=== PATIENT | female | born 1965 | race Caucasian/White ===

== ENCOUNTER 2017-03-28 04:22 | Emergency (ER) | payer BC, OTHER ==
[2017-03-28] MEDS ORDERED: SODIUM CHLORIDE 1,000 ML IV STA (04:53)
[2017-03-28 04:55] VITALS: BMI 25.7
[2017-03-28] MEDS ORDERED: METOCLOPRAMIDE HCL INJECTION 10 MG/2 ML VIAL IVPB ONE (05:03)
[2017-03-28] MEDS ORDERED: methylPREDNISolone NA SUCC 125 MG/2 ML VIAL IVPB ONE (05:03)
[2017-03-28] MEDS ORDERED: morphine CARPU-JECT 4 MG/1 ML DISP.SYRIN IVPUSH ONE (05:03)
[2017-03-28] MEDS ORDERED: morphine CARPU-JECT 4 MG/1 ML DISP.SYRIN ONE (05:22)
[2017-03-28] MEDS ORDERED: methylPREDNISolone NA SUCC 125 MG/2 ML VIAL ONE (05:22)
[2017-03-28] MEDS ORDERED: METOCLOPRAMIDE HCL INJECTION 10 MG/2 ML VIAL ONE (05:22)
[2017-03-28 05:23] LABS: BASOPHIL 0.7 % (0-2.0); EOSINOPHIL 0.6 % (0-4.5); MCH 28.4 pg (25.7-33.7); MCHC 33.5 g/dl (32.0-36.0); MEAN CELL VOLUME 84.8 fl (80-96); MEAN PLT VOLUME 10.1 fl (7.5-11.1); NEUTROPHILS 76.3 % (42.8-82.8); PLATELET COUNT 165 K/MM3 (134-434); RDW 15.5 % (11.6-15.6); WHITE BLOOD COUNT 5.9 K/mm3 (4.0-10.0)
--- NOTE | 2017-03-28 05:24 | PDOC ---
History of Present Illness - General Chief Complaint: Headache Stated Complaint: HEADACHE, NECK PAIN, VOMITING Time Seen by Provider: 03/28/17 04:40 History Source: Patient Exam Limitations: No Limitations - History of Present Illness Initial Comments: 03/28/17 05:12 52yo Female patient w/ PmHx: Hypothyroidism, HLD, Hysterectomy presents to ED w / c/o severe sudden onset h/a with left eye pressure. Patient states she was cleaning when symptoms began around 12am this morning. She state taking Tylenol x 2 tabs -> vomited then felt better, experience some abdominal discomfort, took Tylenol x 2 again and vomited. Associated photophobia and pain with EOM. Patient denies any other complaints at this time. Timing/Duration: reports: 4-6 hours, increasing Severity: Yes: severe Episode Description: See HPI Associated Symptoms: reports: nausea/vomiting. denies: denies symptoms, confusion, fatigue, fever/chills, insomnia, loss of consciousness, muscle spasms , numbness in legs/feet, paresthesia, ringing in ears, seizures, sleepy, slurred speech, tingling in legs/feet, trouble walking, vision changes, weakness , other Past History - Travel Traveled outside of the country in the last 30 days: No Close contact w/someone who was outside of country & ill: No - Past Medical History Allergies/Adverse Reactions: Allergies Allergy/AdvReac Type Severity Reaction Status Date / Time Penicillins Allergy Rash Verified 03/28/17 04:55 Home Medications: Ambulatory Orders Levothyroxine [Synthroid -] 75 mcg PO DAILY 12/10/13 Cancer: Yes Thyroid Disease: Yes (HYPO) - Family Disease History Family Disease History: CA: Sister - Immunization History Immunization Up to Date: Yes - Suicide/Smoking/Psychosocial Hx Smoking Status: No Smoking History: Never smoked Have you smoked in the past 12 months: No Number of Cigarettes Smoked Daily: 0 Information on smoking cessation initiated: No Hx Alcohol Use: No Drug/Substance Use Hx: No Substance Use Type: None Neuro Specific PMHX - Complaint Specific PMHX Glaucoma: No Herniated Disk: No Laminectomy: No Migraine: No Multiple Sclerosis: No Neuropathy: No TIA: No Review of Systems - Review of Systems Able to Perform ROS?: Yes Is the patient limited Bulgarian proficient: No Constitutional: No: Chills, Fever HEENTM: No: Eye Pain, Blurred Vision Respiratory: No: Cough, Stridor, Wheezing Cardiac (ROS): No: Chest Pain ABD/GI: Yes: Nausea, Vomiting. No: Constipated, Diarrhea, Poor Appetite, Poor Fluid Intake Musculoskeletal: No: Back Pain Neurological: Yes: Headache. No: Numbness, Paresthesia, Seizure, Tingling, Tremors, Weakness, Unsteady Gait, Ataxia, Dizziness All Other Systems: Reviewed and Negative *Physical Exam - Vital Signs Last Vital Signs Temp Pulse Resp BP Pulse Ox 98.1 F 76 21 140/95 99 03/28/17 04:51 03/28/17 04:51 03/28/17 04:51 03/28/17 04:51 03/28/17 04:51 - Physical Exam General Appearance: Yes: Nourished, Appropriately Dressed, Apparent Distress, Moderate Distress. No: Mild Distress, Severe Distress HEENT: positive: K[place], Normal ENT Inspection, Normal Voice, Symmetrical, TMs Normal, Pharynx Normal. negative: EOMI (Pain on examination.), Scleral Icterus (R), Scleral Icterus (L), Pharyngeal Erythema, Tonsillar Exudate, Tonsillar Erythema, TM Bulging, TM Dull, TM Erythema Neck: positive: Trachea midline, Supple. negative: Rigid, Stridor, Lymphadenopathy (R), Lymphadenopathy (L) Respiratory/Chest: positive: Lungs Clear, Normal Breath Sounds. negative: Chest Tender, Respiratory Distress, Accessory Muscle Use, Labored Respiration, Rapid RR, Rhonchi, Stridor, Wheezing Cardiovascular: positive: Regular Rhythm, Regular Rate Gastrointestinal/Abdominal: positive: Normal Bowel Sounds, Soft. negative: Tender, Distended, Rebound, Tenderness Musculoskeletal: positive: Normal Inspection. negative: CVA Tenderness Extremity: positive: Normal Capillary Refill, Normal Inspection, Normal Range of Motion. negative: Pedal Edema, Swelling, Calf Tenderness, Erythema, Inflammation Integumentary: positive: Normal Color, Dry, Warm Neurologic: positive: finding fastener II-XII NML intact, Fully Oriented, Alert, Normal Mood/ Affect, Normal Response, Motor Strength 5/5 ED Treatment Course - RADIOLOGY Radiology Studies Ordered: Category Date Time Status HEAD CT WITH AND W/O CONTRAST [CT] Stat CT Scan 03/28/17 04:51 Ordered NECK CTA [CT] Stat CT Scan 03/28/17 04:51 Ordered *DC/Admit/Observation/Transfer - Discharge Dispostion Condition at time of disposition: Fair
[2017-03-28 05:48] LABS: ALBUMIN 4.4 g/dl (3.4-5.0); ALK PHOS 69 U/L (45-117); ANION GAP 7 (8-16); BILIRUBIN,TOTAL 0.3 mg/dL (0.2-1.0); CALCIUM 8.8 mg/dL (8.5-10.1); CO2 28 mmol/L (21-32); CREATININE 0.6 mg/dL (0.55-1.02); GLUCOSE,RANDOM 112 mg/dL (74-106); SGOT/AST 17 U/L (15-37); SGPT/ALT 25 U/L (12-78); TOT PROT 7.5 g/dl (6.4-8.2)
--- NOTE | 2017-03-28 07:12 | PDOC ---
*Physical Exam - Vital Signs Last Vital Signs Temp Pulse Resp BP Pulse Ox 98.1 F 76 21 140/95 99 03/28/17 04:51 03/28/17 04:51 03/28/17 04:51 03/28/17 04:51 03/28/17 04:51 ED Treatment Course - LABORATORY CBC & Chemistry Diagram: 03/28/17 05:15 03/28/17 05:15 - ADDITIONAL ORDERS Additional order review: Laboratory Results 03/28/17 05:15 Sodium 144 Potassium 4.2 Chloride 109 H Carbon Dioxide 28 Anion Gap 7 L BUN 14 Creatinine 0.6 Creat Clearance w eGFR > 60 Random Glucose 112 H Calcium 8.8 Total Bilirubin 0.3 D AST 17 D ALT 25 D Alkaline Phosphatase 69 D Total Protein 7.5 Albumin 4.4 03/28/17 05:15 RBC 4.09 MCV 84.8 MCHC 33.5 RDW 15.5 MPV 10.1 Neutrophils % 76.3 D Lymphocytes % 18.1 D Monocytes % 4.3 Eosinophils % 0.6 D Basophils % 0.7 - Medications Given in the ED: ED Medications Discontinued Medications Generic Name Dose Route Start Last Admin Trade Name Freq PRN Reason Stop Dose Admin Sodium Chloride 1,000 mls @ 1,000 mls/hr 03/28/17 04:53 03/28/17 05:30 Normal Saline - IV 03/28/17 05:52 1,000 mls/hr ASDIR STA Administration Methylprednisolone Sodium Succinate 125 mg 03/28/17 05:03 03/28/17 05:26 Solu-Medrol - IVPB 03/28/17 05:04 125 mg ONCE ONE Administration Metoclopramide HCl 10 mg 03/28/17 05:03 03/28/17 05:27 Reglan Injection - IVPB 03/28/17 05:04 10 mg ONCE ONE Administration Morphine Sulfate 4 mg 03/28/17 05:03 03/28/17 05:34 Morphine Injection - IVPUSH 03/28/17 05:04 4 mg ONCE ONE Administration Medical Decision Making - Medical Decision Making 03/28/17 08:27 Received sign out from MOTORIZED SQU[employer] COMMANDING OFFICER Nicolas Luna. Waiting for CTA Neck, CT w/wo contrast of head. Pt. still complaining of headache 6/10 pain. Reports that she was nauseous and vomiting at CT even after reglan treatment. Will give IV zofran and IV tylenol now. Concerning for bleed. CT scan performed within 6 hours of onset of symptoms. 03/28/17 09:[address] Edward radiology. Reports an aneyrusm in the [place] of [place], but no evidence of subarachnoid at this time. Will consult with Dr. Akhtar neurosurgery. Also consider LP at this time. 03/28/17 09:[address] Akhtar Neurosurgery, who is recommending LP at this time. If the LP is positive for bleeding, pt. will be a candidate for transfer. Updated pt. with results and pt. agrees to LP at this time. 03/28/17 11:09 LP performed under sterile technique with Dr. Granados. See procedure note. Fluid collected was clear and colorless. Waiting for lab results. Pt. reports feeling better after zofran and Ofirmev. 03/28/17 12:45 Lumbar puncture with 1 RBC, no PMN's or organisms seen on gram stain. Protein and glucose within normal limits. Will follow up with neurosurgery for further discharge planning. Eye exam: PERRLA. No evidence of widening of the L pupil. No ptosis, lid lag 03/28/17 13:[address] Akhtar. Based on exam findings and lumbar puncter results, can discharge home with neurology follow up. Pt. reports that her symptoms have resolved and she is feeling much better. Will discharge home at this time. Pt. given strict return precautions should her headache return. *DC/Admit/Observation/Transfer Diagnosis at time of Disposition: Aneurysm Headache Qualifiers: Headache type: unspecified Headache chronicity pattern: acute headache Intractability: not intractable Qualified Code(s): R51 - Headache - Discharge Dispostion Disposition: HOME Condition at time of disposition: Good Admit: No - Prescriptions Prescriptions: Tramadol HCl 50 mg PO TID #5 tablet MDD 3 - Referrals Referrals: Amanda Mancia [Primary Care Provider] - Deuce Souza MD [Staff Physician] - Vinay Akhtar MD [Staff Physician] - - Patient Instructions Printed Discharge Instructions: DI for Migraine, Brain Aneurysm Additional Instructions: Your work up today showed that you have a small aneurysm in your brain. Your lumbar puncture did not show any blood. You need to follow up with neurology this week. You may take tylenol or ibuprofen as needed for pain. You were also prescribed tramadol. You may take this as needed for breakthrough pain. Rest for the next few days and avoid screens or close reading. Return to the ED if your pain returns, is not relieved with the medication, if you have nausea, vomiting, dizziness, weakness, or have any changes in your symptoms. Lumbar Puncture Indication: sudden onset headache Risks and Benefits Explained: Yes Sterile Technique: Yes Skin prep: Betadine Position: Right lateral decubitus Site: L4-L51 Local Anesthesia: 1% Lidocaine with epi (6cc without epi) CSF Color, Appearance: Clear, Colorless Sterile Dressing Applied: Yes
[2017-03-28] MEDS ORDERED: ONDANSETRON 4 MG/2 ML VIAL IVPUSH ONE (08:26)
[2017-03-28] MEDS ORDERED: ACETAMINOPHEN 1000 MG/100 ML VIAL (NON FORMULARY) IVPB ONE (08:27)
[2017-03-28] MEDS ORDERED: ACETAMINOPHEN INJECTION 100 ML IVPB ONE (08:36)
[2017-03-28] MEDS ORDERED: ONDANSETRON 4 MG/2 ML VIAL ONE (08:36)
[2017-03-28] MEDS ORDERED: LIDOCAINE HCL 1%, 10 MG/ML (50 mL VIAL) SQ ONE (09:36)
[2017-03-28] MEDS ORDERED: LIDOCAINE HCL 1%, 10 MG/ML (20ML VIAL) ONE (09:38)
--- NOTE | 2017-03-28 10:59 | PDOC ---
*Physical Exam - Vital Signs Last Vital Signs Temp Pulse Resp BP Pulse Ox 98.2 F 80 21 132/91 98 03/28/17 08:51 03/28/17 08:51 03/28/17 04:51 03/28/17 08:51 03/28/17 08:51 - Physical Exam General Appearance: Yes: Appropriately Dressed <Tootie Granados - Last Filed: 03/28/17 10:57> - Vital Signs Last Vital Signs Temp Pulse Resp BP Pulse Ox 98.1 F 92 H 18 119/77 98 03/28/17 12:24 03/28/17 12:24 03/28/17 12:24 03/28/17 12:24 03/28/17 12:24 <Trisha Watson - Last Filed: 03/28/17 12:51> ED Treatment Course - LABORATORY CBC & Chemistry Diagram: 03/28/17 05:15 03/28/17 05:15 - ADDITIONAL ORDERS Additional order review: Laboratory Results 03/28/17 05:15 Sodium 144 Potassium 4.2 Chloride 109 H Carbon Dioxide 28 Anion Gap 7 L BUN 14 Creatinine 0.6 Creat Clearance w eGFR > 60 Random Glucose 112 H Calcium 8.8 Total Bilirubin 0.3 D AST 17 D ALT 25 D Alkaline Phosphatase 69 D Total Protein 7.5 Albumin 4.4 03/28/17 05:15 RBC 4.09 MCV 84.8 MCHC 33.5 RDW 15.5 MPV 10.1 Neutrophils % 76.3 D Lymphocytes % 18.1 D Monocytes % 4.3 Eosinophils % 0.6 D Basophils % 0.7 - Medications Given in the ED: ED Medications Discontinued Medications Generic Name Dose Route Start Last Admin Trade Name Sushma PRN Reason Stop Dose Admin Acetaminophen 1,000 mg 03/28/17 08:27 03/28/17 08:44 Ofirmev Injection - IVPB 03/28/17 08:28 1,000 mg ONCE ONE Administration Sodium Chloride 1,000 mls @ 1,000 mls/hr 03/28/17 04:53 03/28/17 05:30 Normal Saline - IV 03/28/17 05:52 1,000 mls/hr ASDIR STA Administration Methylprednisolone Sodium Succinate 125 mg 03/28/17 05:03 03/28/17 05:26 Solu-Medrol - IVPB 03/28/17 05:04 125 mg ONCE ONE Administration Metoclopramide HCl 10 mg 03/28/17 05:03 03/28/17 05:27 Reglan Injection - IVPB 03/28/17 05:04 10 mg ONCE ONE Administration Morphine Sulfate 4 mg 03/28/17 05:03 03/28/17 05:34 Morphine Injection - IVPUSH 03/28/17 05:04 4 mg ONCE ONE Administration Ondansetron HCl 4 mg 03/28/17 08:26 03/28/17 08:44 Zofran Injection IVPUSH 03/28/17 08:27 4 mg ONCE ONE Administration <RobertaTootie - Last Filed: 03/28/17 10:57> - LABORATORY CBC & Chemistry Diagram: 03/28/17 05:15 03/28/17 05:15 - ADDITIONAL ORDERS Additional order review: Laboratory Results 03/28/17 03/28/17 03/28/17 10:47 10:40 05:15 Sodium 144 Potassium 4.2 Chloride 109 H Carbon Dioxide 28 Anion Gap 7 L BUN 14 Creatinine 0.6 Creat Clearance w eGFR > 60 Random Glucose 112 H Calcium 8.8 Total Bilirubin 0.3 D AST 17 D ALT 25 D Alkaline Phosphatase 69 D Total Protein 7.5 Albumin 4.4 CSF Appearance Clear Clear CSF Color Colorless Colorless CSF RBC 1 1 CSF Neutrophils Y Y CSF Glucose 62 CSF Total Protein 41 03/28/17 10:40 Gram Stain - Final Cerebral Spinal Fluid - Lumbar Puncture 03/28/17 05:15 RBC 4.09 MCV 84.8 MCHC 33.5 RDW 15.5 MPV 10.1 Neutrophils % 76.3 D Lymphocytes % 18.1 D Monocytes % 4.3 Eosinophils % 0.6 D Basophils % 0.7 - Medications Given in the ED: ED Medications Discontinued Medications Generic Name Dose Route Start Last Admin Trade Name Freq PRN Reason Stop Dose Admin Acetaminophen 1,000 mg 03/28/17 08:27 03/28/17 08:44 Ofirmev Injection - IVPB 03/28/17 08:28 1,000 mg ONCE ONE Administration Sodium Chloride 1,000 mls @ 1,000 mls/hr 03/28/17 04:53 03/28/17 05:30 Normal Saline - IV 03/28/17 05:52 1,000 mls/hr ASDIR STA Administration Lidocaine HCl 10 ml 03/28/17 09:36 03/28/17 10:15 Xylocaine 1% SQ 03/28/17 09:37 Not Given ONCE ONE Methylprednisolone Sodium Succinate 125 mg 03/28/17 05:03 03/28/17 05:26 Solu-Medrol - IVPB 03/28/17 05:04 125 mg ONCE ONE Administration Metoclopramide HCl 10 mg 03/28/17 05:03 03/28/17 05:27 Reglan Injection - IVPB 03/28/17 05:04 10 mg ONCE ONE Administration Morphine Sulfate 4 mg 03/28/17 05:03 03/28/17 05:34 Morphine Injection - IVPUSH 03/28/17 05:04 4 mg ONCE ONE Administration Ondansetron HCl 4 mg 03/28/17 08:26 03/28/17 08:44 Zofran Injection IVPUSH 03/28/17 08:27 4 mg ONCE ONE Administration <Trisha Watson - Last Filed: 03/28/17 12:51> Medical Decision Making - Medical Decision Making 03/28/17 10:57 52 yo F with h/o hypothyroid hld, here with sudden onset headache. pending ct. pt was seen by WALTER dobson overnight, then assumed care in conjunction with Gwendolyn Watson. pt ct with anuerysm noted. no active bleeding. d/w dr carmine willis, recommend LP. LP performed with Walter. no complications . spinal fluid clear, sent to lab. overall pt feeling improved. <Tootie Granados - Last Filed: 03/28/17 10:57> *DC/Admit/Observation/Transfer <Tootie Granados - Last Filed: 03/28/17 10:57> - Discharge Dispostion Admit: No <Trisha Watson - Last Filed: 03/28/17 12:51> Diagnosis at time of Disposition: Aneurysm Headache Qualifiers: Headache type: unspecified Headache chronicity pattern: acute headache Intractability: not intractable Qualified Code(s): R51 - Headache - Discharge Dispostion Disposition: HOME Condition at time of disposition: Good - Referrals Referrals: Amanda Mancia [Primary Care Provider] - Deuce Souza MD [Staff Physician] - - Patient Instructions Printed Discharge Instructions: DI for Migraine Additional Instructions: Your work up today showed that you have a small aneurysm in your brain. Your lumbar puncture did not show any blood. You need to follow up with neurology.
[2017-03-28 11:24] LABS: GLUCOSE,CSF 62 mg/dL (50-80)
[2017-03-28 12:01] LABS: CSF APPEARANCE CLEAR; CSF COLOR COLORLESS; CSF RBC 1
[2017-03-28 12:03] LABS: CSF APPEARANCE CLEAR; CSF COLOR COLORLESS; CSF RBC 1
[2017-03-28 13:38] VITALS: BP 133/91; PULSE 78; TEMP 98.6
== END 2017-03-28 13:38 | disposition home or self-care (01) ==
LOC: JER 04:22
PROC: 009U3ZX Drainage of Spinal Canal, Percutaneous Approach, Diagnostic (ICD-10-PCS; principal; 2017-03-28)
PROC: 3E0337Z Introduction of Electrolytic and Water Balance Substance into Peripheral Vein, Percutaneous Approach (ICD-10-PCS; 2017-03-28)
PROC: 3E033NZ Introduction of Analgesics, Hypnotics, Sedatives into Peripheral Vein, Percutaneous Approach (ICD-10-PCS; 2017-03-28)
PROC: 3E033NZ Introduction of Analgesics, Hypnotics, Sedatives into Peripheral Vein, Percutaneous Approach (ICD-10-PCS; 2017-03-28)
PROC: 3E0333Z Introduction of Anti-inflammatory into Peripheral Vein, Percutaneous Approach (ICD-10-PCS; 2017-03-28)
PROC: 3E033GC Introduction of Other Therapeutic Substance into Peripheral Vein, Percutaneous Approach (ICD-10-PCS; 2017-03-28)
DX: I67.1 Cerebral aneurysm, nonruptured (principal)
CPT/HCPCS: 36415; 62270; 70470-TC; 70498-TC; 80053; 82945; 84157; 85025; 85651; 86617; 87070; 87205; 87476; 89050; 96361; 96374; 96375; 99283-25

== ENCOUNTER 2017-08-07 14:59 | Emergency (ER) | payer OTHER, BC ==
[2017-08-07] MEDS ORDERED: LORazepam 2 MG/ML SDV VIAL ONE (15:05)
--- NOTE | 2017-08-07 15:10 | PDOC ---
History of Present Illness - General Stated Complaint: SEIZURE Time Seen by Provider: 08/07/17 15:09 Past History - Past Medical History Allergies/Adverse Reactions: Allergies Allergy/AdvReac Type Severity Reaction Status Date / Time Penicillins Allergy Rash Verified 03/28/17 04:55 Home Medications: Ambulatory Orders Levothyroxine [Synthroid -] 75 mcg PO DAILY 12/10/13 Tramadol HCl 50 mg PO TID #5 tablet MDD 3 03/28/17 Anemia: No Asthma: No Cancer: Yes Cardiac Disorders: No CVA: No COPD: No DVT: No Dementia: No Diabetes: No Dialysis: No GI Disorders: No Disorders: No HTN: No Hypercholesterolemia: Yes Kidney Stones: No Liver Disease: No Psychiatric Problems: No Seizures: No Thyroid Disease: Yes (HYPO) Lung CA: No - Family Disease History Family Disease History: CA: Sister - Immunization History Immunization Up to Date: Yes - Suicide/Smoking/Psychosocial Hx Smoking Status: No Smoking History: Never smoked Have you smoked in the past 12 months: No Number of Cigarettes Smoked Daily: 0 Hx Alcohol Use: No Drug/Substance Use Hx: No Substance Use Type: None
--- NOTE | 2017-08-07 15:19 | PDOC ---
History of Present Illness - General Stated Complaint: SEIZURE Time Seen by Provider: 08/07/17 15:09 History Source: Patient - History of Present Illness Initial Comments: 08/07/17 15:26 52 y.o. female with a PMH of Hypothyroidism, cerebral aneursym (s/p coiling at [facility] in 03/2017), traumatic SDH hematoma (s/p crainotomy 07/31/17) and HLD who presents to the ED with seizure like activity. Patient is s/p subdural hematoma last Thursday treated at [facility] in [place]. Patient notes patient has a h/o head trauma on and began slurring speech and c/o RUE and R face numbness last Thursday prompting their visit to a [facility] where patient was diagnosed with subdural hematoma and transferred to [place] for craniotomy. Patient returned to [place] on and has been complaining of persistent RUE and facial numbness and today began having seizure-like movement. Allergies: Penicillin Surgical: Crainiotomy (2018), Aneurysm Coiling (2016) Past History - Past Medical History Allergies/Adverse Reactions: Allergies Allergy/AdvReac Type Severity Reaction Status Date / Time Penicillins Allergy Rash Verified 03/28/17 04:55 Home Medications: Ambulatory Orders Levothyroxine [Synthroid -] 75 mcg PO DAILY 12/10/13 Tramadol HCl 50 mg PO TID #5 tablet MDD 3 03/28/17 Anemia: No Asthma: No Cancer: Yes Cardiac Disorders: No CVA: No COPD: No DVT: No Dementia: No Diabetes: No Dialysis: No GI Disorders: No Disorders: No HTN: No Hypercholesterolemia: Yes Kidney Stones: No Liver Disease: No Psychiatric Problems: No Seizures: No Thyroid Disease: Yes (HYPO) Lung CA: No - Family Disease History Family Disease History: CA: Sister - Immunization History Immunization Up to Date: Yes - Suicide/Smoking/Psychosocial Hx Smoking Status: No Smoking History: Never smoked Have you smoked in the past 12 months: No Number of Cigarettes Smoked Daily: 0 Hx Alcohol Use: No Drug/Substance Use Hx: No Substance Use Type: None Review of Systems - Review of Systems Able to Perform ROS?: No *Physical Exam - Physical Exam Comments: 08/07/17 22:05 GENERAL: Awake, writhing movements of all 4 extremities HEAD: L sided franca EYES: PERRLA, EOMI, sclera anicteric, conjunctiva clear ENT: Auricles normal inspection, nares patent, oropharynx clear without exudates. Moist mucosa NECK: Normal ROM, supple, no lymphadenopathy, JVD, or masses LUNGS: Breath sounds equal, clear to auscultation bilaterally. No wheezes, and no crackles HEART: Regular rate and rhythm, normal S1 and S2, no murmurs, rubs or gallops ABDOMEN: Soft, nontender, normoactive bowel sounds. No guarding, no rebound. No masses EXTREMITIES: Normal range of motion, no edema. BACK: No midline spinal tenderness in cervical/thoracic/lumbar region NEUROLOGICAL: Normal speech, follows commands SKIN: Warm, Dry, normal turgor, no rashes or lesions noted. ED Treatment Course - LABORATORY CBC & Chemistry Diagram: 08/07/17 16:34 08/07/17 16:34 Medical Decision Making - Medical Decision Making 08/07/17 15:59 Patient is a 52 y.o. female with a PMH of recent subdural hematoma who presents with seizure like activity. Cardiac monitoring, Ativan 2 mg + Head CT. Reassess Head CT shows 2.2 cm L subdural/subacute hemorrhage with 8 mm midline shift. Case d/w neurosurgery and ED @ [facility], patient to be transferred to [facility] for neurosurgical evaluation. At time of transfer patient SBP 150's , patient given prophylatic dose of Keppra (1000 mg). *DC/Admit/Observation/Transfer Diagnosis at time of Disposition: Generalized-onset seizures - Discharge Dispostion Disposition: TRANSFER ACUTE CARE/OTHER HOSP Condition at time of disposition: Critical - Referrals - Patient Instructions - Post Discharge Activity
[2017-08-07] MEDS ORDERED: levETIRAcetam 500 MG/5 ML INJECTION VIAL IVPB ONE ×2 (16:01→16:41)
[2017-08-07 16:06] LABS: BASO % 1.4 % (0-2.0); EOS % 3.6 % (0-4.5); HEMATOCRIT 28.7 % (32.4-45.2); HEMOGLOBIN 9.3 GM/dL (10.7-15.3); LYMPH % 36.2 % (8-40); MCH 26.1 pg (25.7-33.7); MCHC 32.3 g/dl (32.0-36.0); MEAN CELL VOLUME 80.7 fl (80-96); MONO % 8.7 % (3.8-10.2); NEUT % 50.1 % (42.8-82.8); PLATELET COUNT 254 K/MM3 (134-434); RBC 3.56 M/mm3 (3.60-5.2); RDW 15.3 % (11.6-15.6); WHITE BLOOD COUNT 3.6 K/mm3 (4.0-10.0)
[2017-08-07 16:56] LABS: BASO % 0.8 % (0-2.0); EOS % 3.5 % (0-4.5); HEMATOCRIT 25.1 % (32.4-45.2); HEMOGLOBIN 8.1 GM/dL (10.7-15.3); LYMPH % 36.6 % (8-40); MCHC 32.4 g/dl (32.0-36.0); MEAN CELL VOLUME 80.5 fl (80-96); MEAN PLT VOLUME 8.6 fl (7.5-11.1); NEUT % 49.1 % (42.8-82.8); PLATELET COUNT 258 K/MM3 (134-434); RBC 3.13 M/mm3 (3.60-5.2); RDW 15.1 % (11.6-15.6); WHITE BLOOD COUNT 4.1 K/mm3 (4.0-10.0)
[2017-08-07 17:02] VITALS: TEMP 99.2; BMI 24.1
--- NOTE | 2017-08-07 17:14 | PDOC ---
Attending Attestation - Resident Resident Name: Parul Angelo - ED Attending Attestation I have performed the following: I have examined & evaluated the patient, The case was reviewed & discussed with the resident, I agree w/resident's findings & plan, Exceptions are as noted <Keara Talley - Last Filed: 08/07/17 17:13> - HPI HPI: 08/07/17 18:42 The patient is a 52 year old female with a significant PMH of hypothyroidism, cerebral aneurysm s/p coiling at [facility] March 2017, traumatic SDH s/p craniotomy 07/31/17 and hyperlipidemia who presents to the emergency department with seizure like activity. The patients is at bedside and providing most of the history. The patient is s/p craniotomy for traumatic SDH on 07/31/17 at [facility] ([place]) diagnosed after the patient began to have R facial/arm numbness. The patient and returned to [place] on 08/04/17 and the patient has had persistent numbness of the right arm and right face. One hour PROFESSIONAL PROGRAMMER ANALYST, pt began to have writhing movements of her body which prompted him to bring her to the ED. No LOC, no falls or headstrike. The patient is currently taking keppra, oxycodone, zofran, and gabapentin and the states the patient took keppra today. Allergies: NKA Past surgical history: Craniotomy, aneurysm coiling Social history: No reported alcohol, cigarette or drug use. - Physicial Exam PE: 08/07/17 18:42 GENERAL: Awake, alert, repetitive movements of L side of body HEAD: No signs of trauma EYES: PERRLA, EOMI, sclera anicteric, conjunctiva clear NECK: Normal ROM, supple, no lymphadenopathy, JVD, or masses LUNGS: Breath sounds equal, clear to auscultation bilaterally. No wheezes, and no crackles HEART: tachy to 104 but regular, normal S1 and S2, no murmurs, rubs or gallops ABDOMEN: Soft, nontender, normoactive bowel sounds. No guarding, no rebound. No masses EXTREMITIES: Normal range of motion, no edema. No clubbing or cyanosis. No cords, erythema, or tenderness BACK: No midline spinal tenderness in cervical/thoracic/lumbar region NEUROLOGICAL:Slurred speech, rigidity to LUE and LLE, normal sensation to light touch in all 4 extremities, gait and cerebeller exam deferred SKIN: Warm, Dry, normal turgor, no rashes or lesions noted. <Edwige Francois - Last Filed: 08/07/17 18:42>
[2017-08-07 17:17] LABS: INR 1.05 (0.82-1.09); PROTHROMBIN TIME (PATIENT) 11.9 SEC (9.98-11.88)
[2017-08-07 17:19] LABS: ACTIVATED PTT 29.3 SECONDS (26.9-34.4)
[2017-08-07 17:22] VITALS: BP 122/87; PULSE 80
[2017-08-07 17:46] LABS: ALBUMIN 3.8 g/dl (3.4-5.0); ANION GAP 7 (8-16); BLOOD UREA NITROGEN 14 mg/dL (7-18); CALCIUM 8.6 mg/dL (8.5-10.1); CHLORIDE 104 mmol/L (98-107); CHOLESTEROL 189 mg/dL (50-200); CO2 28 mmol/L (21-32); GLUCOSE,RANDOM 89 mg/dL (74-106); POTASSIUM 4.2 mmol/L (3.5-5.1); SGOT/AST 22 U/L (15-37); SODIUM 139 mmol/L (136-145)
[2017-08-07 18:04] LABS: ALK PHOS 97 U/L (45-117); BILIRUBIN,TOTAL 0.3 mg/dL (0.2-1.0); CREATININE 0.6 mg/dL (0.55-1.02); HDL CHOLESTEROL 56 mg/dL (40-60); LDL CHOLESTEROL (ONLY SJRH) 112 mg/dL (5-100); SGPT/ALT 33 U/L (12-78); TOT PROT 6.8 g/dl (6.4-8.2); TRIGLYCERIDES 157 mg/dL (35-160)
--- NOTE | 2017-08-08 13:20 | EKG ---
Test Reason : Blood Pressure : / mmHG Vent. Rate : 078 BPM Atrial Rate : 078 BPM P-R Int : 144 ms QRS Dur : 082 ms QT Int : 386 ms P-R-T Axes : 086 006 019 degrees QTc Int : 440 ms NORMAL SINUS RHYTHM POOR R WAVE PROGRESSION ABNORMAL ECG WHEN COMPARED WITH ECG OF 07-APR-2015 18:35, NO SIGNIFICANT CHANGE WAS FOUND NOTE POSSIBLE ERROR IN LEAD POSITIONING, V4 Confirmed by DELTA GUZMAN, SHASHA ([id number]) on 08/08/2017 1:19:45 PM Referred By: Confirmed By:SHASHA SORENSON MD
== END 2017-08-07 17:20 | disposition short-term general hospital (02) ==
LOC: JER 14:59
DX: R56.9 Unspecified convulsions (principal); Z87.820 Personal history of traumatic brain injury
CPT/HCPCS: 36415; 70450-TC; 80053; 82465; 82550; 83718; 83721; 84478; 84484; 85025; 85610; 85730; 86850; 86900; 86901; 93005; 93010; 99283-25

== ENCOUNTER 2017-08-15 13:41 | Observation (INO) | payer OTHER, BC ==
--- NOTE | 2017-08-15 13:58 | PDOC ---
History of Present Illness - General History Source: Patient, Family Exam Limitations: No Limitations - History of Present Illness Initial Comments: 08/15/17 14:37 The patient is a 52 year old female with a significant past medical history of hyperthyroidism s/p RT (now on synthroid), s/p bilateral mastectomy, elective clipping of left sided cerebral aneurysm (05/20/17 at [facility]), traumatic SDH hematoma (s/p craniotomy 07/31/17), Left SDH with mass effect (08/07/17) who presents to the ED, brought in by family, with numbness. The patient reports a sudden onset of right sided numbness 15 minutes prior to her arrival to the ED. The patient was seen in the ED last week and was diagnosed with a Left SDH with mass effect. Patient was transferred to [facility] and had a craniotomy with evacuation of the hematoma. Family states the patients present symptoms are similar to her symptoms last week. She reports numbness to her right sided extremities, right sided face, and tongue. Patient also reports a severe headache all day. Denies fever or chills. Denies any other symptoms. <Nandini Santana - Last Filed: 08/15/17 17:07> <Elizabeth Hatfield - Last Filed: 08/16/17 01:32> - General Chief Complaint: CVA/TIA Stated Complaint: SEIZURE Time Seen by Provider: 08/15/17 13:47 Past History <Nandini Santana - Last Filed: 08/15/17 17:07> - Past Medical History Anemia: No Asthma: No Cancer: Yes Cardiac Disorders: No CVA: No COPD: No DVT: No Dementia: No Diabetes: No Dialysis: No GI Disorders: No Disorders: No HTN: No Hypercholesterolemia: Yes Kidney Stones: No Liver Disease: No Psychiatric Problems: No Seizures: No Thyroid Disease: Yes (HYPO) Lung CA: No - Surgical History Neurologic Surgery: Yes (brain clip 05/2017 crainotomy 08/05/2017) - Family Disease History Family Disease History: CA: Sister - Immunization History Immunization Up to Date: Yes - Suicide/Smoking/Psychosocial Hx Smoking Status: No Smoking History: Never smoked Have you smoked in the past 12 months: No Number of Cigarettes Smoked Daily: 0 Hx Alcohol Use: No Drug/Substance Use Hx: No Substance Use Type: None <Elizabeth Hatfield - Last Filed: 08/16/17 01:32> - Past Medical History Allergies/Adverse Reactions: Allergies Allergy/AdvReac Type Severity Reaction Status Date / Time Penicillins Allergy Rash Verified 08/15/17 13:59 Home Medications: Ambulatory Orders Levothyroxine [Synthroid -] 75 mcg PO DAILY 12/10/13 Ascorbic Acid [Vitamin C] 500 mg PO DAILY 08/15/17 Ferrous Sulfate 325 mg PO DAILY 08/15/17 Gabapentin [Neurontin -] 300 mg PO Q8H 08/15/17 Levetiracetam 1,000 mg PO BID 08/15/17 Simvastatin 20 mg PO DAILY 08/15/17 Review of Systems - Review of Systems Able to Perform ROS?: Yes Comments:: 08/15/17 14:37 Constitutional - Pt denies Fever, Chills, weakness, HEENT: denies vision changes, sore throat Respiratory: Denies cough, sob, hemoptysis Cardiac: denies chest pain, palpitations, light headedness, leg swelling Abd/GI: denies abd pain, nausea, vomiting, blood per rectum, melena, diarrhea : denies dysuria, frequency, discharge Musculskelatal - denies back pain, joint swelling skin - denies bruising, erythema, rash neurological: + headache, numbness. hematologic: denies anemia, easy bruising, easy bleeding All Other Systems: Reviewed and Negative <Nandini Santana - Last Filed: 08/15/17 17:07> *Physical Exam - Vital Signs Last Vital Signs Temp Pulse Resp BP Pulse Ox 97 F L 84 12 122/97 100 08/15/17 13:50 08/15/17 13:50 08/15/17 13:50 08/15/17 13:50 08/15/17 13:50 - Physical Exam Comments: 08/15/17 14:37 GENERAL: The patient is awake, alert, and fully oriented, Nontoxic - in no acute distress. HEAD: + Nicholson in head from recent Craniotomy. Normocephalic. EYES: extraocular movements intact, sclera anicteric, conjunctiva clear. ENT: Normal voice, moist mucous membranes. NECK: Normal range of motion, supple without lymphadenopathy, JVD, or masses. LUNGS: Breath sounds equal, clear to auscultation bilaterally. No wheezes, no crackles, no rales. HEART: Regular rate and rhythm, normal S1 and S2 without murmur, rub or gallop. ABDOMEN: Soft, nontender, normoactive bowel sounds. No guarding, no rebound. No masses. EXTREMITIES: Normal range of motion, no edema. No clubbing or cyanosis. No cords , erythema, or tenderness. NEUROLOGICAL: + Fully Oriented x 3, Alert, Motor Strength 5/5 in upper extremities. Lower extremities: able to move right leg against gravity, but unable to lift off bed. Left leg unable to lift at all. Numbness of right side, weakness of right lower leg. No pronator drift, normal finger to nose. Slight right facial asymmetry. Normal speech SKIN: Warm, Dry, normal turgor, no rashes or lesions noted. <Nandini Santana - Last Filed: 08/15/17 17:07> Heart Score/ECG Review - Electrocardiogram EKG: Normal - Age Age: 45-65 - Risk Factors Risk Factors Heart Score: Yes Hx Hypercholesterolemia, Yes Hx Hypertension Based on the list above the patient has:: 1-2 risk factors - Troponin Troponin: </= normal limit - ECG Intrepretation Rhythm: Regular Rhythm (nsr at 90 nl axis) <Elizabeth Hatfield - Last Filed: 08/16/17 01:32> ED Treatment Course - LABORATORY CBC & Chemistry Diagram: 08/15/17 13:55 08/15/17 13:56 - ADDITIONAL ORDERS Additional order review: Laboratory Results 08/15/17 08/15/17 14:00 13:55 PT with INR 11.90 H INR 1.05 Sodium Cancelled Potassium Cancelled Chloride Cancelled Carbon Dioxide Cancelled Anion Gap Cancelled BUN Cancelled Creatinine Cancelled Creat Clearance w eGFR Cancelled Random Glucose Cancelled Calcium Cancelled Total Bilirubin Cancelled AST Cancelled ALT Cancelled Alkaline Phosphatase Cancelled Total Protein Cancelled Albumin Cancelled 08/15/17 13:55 RBC 3.10 L MCV 80.3 MCHC 32.2 RDW 15.5 MPV 7.8 Neutrophils % 42.1 L Lymphocytes % 46.7 H D Monocytes % 8.3 Eosinophils % 2.3 Basophils % 0.6 - RADIOLOGY Radiograph Interpretation: 08/15/17 17:03 CT/HEAD CT Impression: Status post left frontoparietal craniotomy with interval decreased size of the left subdural hematoma. Residual mixed density left subdural hematoma along the left frontoparietal convexities measures up to 9 mm in thickness with mild mass effects. No midline shift, herniation pattern or hydrocephalus. No compelling evidence of acute transcortical infarction at this time. MRI is more sensitive in detecting acute infarction. These findings were discussed with Dr. Hatfield at approximately 14:15 on 08/15/2017 Reported by: Jayda Edward 08/15/17 17:07 RAD/CHEST X-RAY PORTABLE Impression: Bilateral breast implants. Previous right shoulder surgery. Degenerative changes. No acute pathology. Reported by: Bucky Gilbert - Medications Given in the ED: ED Medications Discontinued Medications Generic Name Dose Route Start Last Admin Trade Name Freq PRN Reason Stop Dose Admin Levetiracetam 1,000 mg 08/15/17 14:11 08/15/17 14:24 Keppra Injection - IVPB 08/15/17 14:12 1,000 mg ONCE ONE Administration Levetiracetam 1,500 mg 08/15/17 14:11 08/15/17 14:28 Keppra Injection - IVPB 08/15/17 14:12 Not Given ONCE ONE Ondansetron HCl 4 mg 08/15/17 14:18 08/15/17 14:28 Zofran Injection IVPUSH 08/15/17 14:19 4 mg ONCE ONE Administration <Nandini Santana - Last Filed: 08/15/17 17:07> - LABORATORY CBC & Chemistry Diagram: 08/15/17 19:10 08/15/17 13:56 - RADIOLOGY Radiology Studies Ordered: Category Date Time Status HEAD CT WITHOUT CONTRAST [CT] Stat CT Scan 08/15/17 13:47 Ordered CHEST X-RAY PORTABLE* [RAD] Stat Radiology 08/15/17 13:48 Ordered <Elizabeth Hatfield - Last Filed: 08/16/17 01:32> Medical Decision Making - Critical Care Time Total Critical Care Time (minutes): 30 Critical Care Statement: The care of this patient involved high complexity decision making to prevent further life threatening deterioration of the patient 's condition and/or to evaluate & treat vital organ system(s) failure or risk of failure. - Medical Decision Making 08/15/17 15:[address] Whitman and Dr. Neal. <Nandini Santana - Last Filed: 08/15/17 17:07> - Critical Care Time Total Critical Care Time (minutes): 30 Critical Care Statement: The care of this patient involved high complexity decision making to prevent further life threatening deterioration of the patient 's condition and/or to evaluate & treat vital organ system(s) failure or risk of failure. - Medical Decision Making 08/15/17 13:58 I, Dr. Elizabeth Hatfield I attest that the scribes documentation that appears above has been prepared under my direction and personally reviewed by me. Pt brought in by family with complaints of sudden onset of rt sided weakness, headache,similar to the symptoms she experienced a week ago. Emergent ct of head , cbc, cmp, inr ,ekg blood glucose orderd. Ct of head shows post operative changes but no new intracranial bleed or cva. Pts labs noted , pt neuro exam improvng during time in ed. Rt side weakness and numbness resolving in ed. Case discussed with neuro sx and neurology and pt examined by both consultants while in ED. Todays incident may have been secondary to some type of seizure related event secondary to pt's recent surgery. Pt physical exam not completely at baseline,so will admit for observation to stroke unit. Pt agrees with this dc plan. Pt's initial NIHSS 7 and improving,but Pt would not a candiate for any type of TPA, due to recent SDH and craniotomy. 08/16/17 01:21 08/16/17 01:30 <Elizabeth Hatfield - Last Filed: 08/16/17 01:32> *DC/Admit/Observation/Transfer - Attestations Scribe Attestion: 08/15/17 14:38 Documentation prepared by Nandini Santana, acting as manager medical writing for Elizabeth Hatfield MD <Nandini Santana - Last Filed: 08/15/17 17:07> - Discharge Dispostion Admit: Yes <Elizabeth Hatfield - Last Filed: 08/16/17 01:32> Diagnosis at time of Disposition: Seizure as late effect of cerebrovascular accident (CVA) - Discharge Dispostion Condition at time of disposition: Stable
[2017-08-15] MEDS ORDERED: SODIUM CHLORIDE 1,000 ML IV SCH (14:00)
[2017-08-15 14:03] LABS: BASO % 0.6 % (0-2.0); EOS % 2.3 % (0-4.5); HEMATOCRIT 24.9 % (32.4-45.2); LYMPH % 46.7 % (8-40); MCH 25.9 pg (25.7-33.7); MCHC 32.2 g/dl (32.0-36.0); MEAN CELL VOLUME 80.3 fl (80-96); MEAN PLT VOLUME 7.8 fl (7.5-11.1); MONO % 8.3 % (3.8-10.2); NEUT % 42.1 % (42.8-82.8); PLATELET COUNT 420 K/MM3 (134-434); RDW 15.5 % (11.6-15.6); WHITE BLOOD COUNT 6.1 K/mm3 (4.0-10.0)
[2017-08-15] MEDS ORDERED: levETIRAcetam 500 MG/5 ML INJECTION VIAL IVPB ONE ×3 (14:11→14:14)
[2017-08-15] MEDS ORDERED: ONDANSETRON 4 MG/2 ML VIAL IVPUSH ONE (14:18)
[2017-08-15 14:20] LABS: INR 1.05 (0.82-1.09); PROTHROMBIN TIME (PATIENT) 11.9 SEC (9.98-11.88)
--- NOTE | 2017-08-15 14:24 | PDOC ---
NIH Stroke Scale - Last Known Well Date/Time & Onset Date Last Known Well: 08/15/17 Time Last Known Well: 13:30 - Initial Evaluation Level of consciousness: Alert Ask patient the month and their age: Answers both correctly Ask patient to open & close eyes; make fist and let go: Obeys both correctly Best gaze (horizontal eye movement): Normal Visual field testing: No visual field loss Facial paresis (Show teeth/raise eyebrows/close eyes tight): Minor paralysis ( flattened nasolabial fold, asymmetry on smiling) Motor Function: Left Arm: Normal Motor Function: Right Arm: Normal (extends arm 90 (or 45) degrees for 10 seconds without drift Motor Function: Left Leg: Drift Motor Function: Right Leg: Some effort against gravity Limb Ataxia: No ataxia Sensory(Use pinprick test arms,legs,trunk,face/side to side): Mild to moderate decrease in sensation Best language (Describe picture, name items, read sentences): Mild to moderate aphasia Dysarthria (read several words): Mild to moderate slurring of words Extinction and Inattention: No abnormality - Total Score NIH Stroke Scale Score: 7
[2017-08-15] MEDS ORDERED: ONDANSETRON 4 MG/2 ML VIAL ONE (14:29)
[2017-08-15] MEDS ORDERED: ACETAMINOPHEN INJECTION 100 ML IVPB ONE (14:29)
[2017-08-15] MEDS ORDERED: ACETAMINOPHEN 1000 MG/100 ML VIAL (NON FORMULARY) IVPB ONE (14:29)
[2017-08-15 14:34] LABS: ANION GAP 8 (8-16); BILIRUBIN,TOTAL 0.3 mg/dL (0.2-1.0); BLOOD UREA NITROGEN 15 mg/dL (7-18); CALCIUM 8.5 mg/dL (8.5-10.1); CHLORIDE 107 mmol/L (98-107); CHOLESTEROL 165 mg/dL (50-200); CO2 24 mmol/L (21-32); CREATININE 0.5 mg/dL (0.55-1.02); GLUCOSE,RANDOM 82 mg/dL (74-106); HDL CHOLESTEROL 60 mg/dL (40-60); LDL CHOLESTEROL (ONLY SJRH) 92 mg/dL (5-100); SGPT/ALT 29 U/L (12-78); SODIUM 139 mmol/L (136-145); TOT PROT 7.2 g/dl (6.4-8.2); TRIGLYCERIDES 148 mg/dL (35-160)
[2017-08-15 14:35] LABS: ALK PHOS 88 U/L (45-117)
[2017-08-15 14:37] LABS: POTASSIUM 5.1 mmol/L (3.5-5.1); SGOT/AST 32 U/L (15-37)
--- NOTE | 2017-08-15 15:44 | CON.NEURO ---
Consult - Past Medical History Gastrointestinal: Yes: GERD Endocrine: Yes: Hyperthyroidism - Past Surgical History Past Surgical History: Yes: Mastectomy - Alcohol/Substance Use Hx Alcohol Use: No History of Substance Use: reports: None - Smoking History Smoking history: Never smoked Have you smoked in the past 12 months: No Aproximately how many cigarettes per day: 0 - Social History History of Recent Travel: No Home Medications - Allergies Allergies/Adverse Reactions: Allergies Allergy/AdvReac Type Severity Reaction Status Date / Time Penicillins Allergy Rash Verified 08/15/17 13:59 - Home Medications Home Medications: Ambulatory Orders Levothyroxine [Synthroid -] 75 mcg PO DAILY 12/10/13 Ascorbic Acid [Vitamin C] 500 mg PO DAILY 08/15/17 Ferrous Sulfate 325 mg PO DAILY 08/15/17 Gabapentin [Neurontin -] 300 mg PO Q8H 08/15/17 Levetiracetam 1,000 mg PO BID 08/15/17 Simvastatin 20 mg PO DAILY 08/15/17 Physical Exam-Neuro Vital Signs: Vital Signs Temperature 98.4 F 08/15/17 14:30 Pulse Rate 85 08/15/17 15:06 Respiratory Rate 20 08/15/17 15:06 Blood Pressure 107/75 08/15/17 15:06 O2 Sat by Pulse Oximetry (%) 100 08/15/17 15:06 Labs: CBC, BMP 08/15/17 13:55 08/15/17 13:56 INR, PTT INR 1.05 (0.82-1.09) 08/15/17 14:00 Assessment/Plan cc right sided numbness, shaking and slurring of speech HPI 52 year old female history of hypercholestermia, hyothyrodism on synthroid and had cerebral aneursmal surgery at [facility]. Following surgery she had SDH twice and recently was operated at [facility] . Today she had mild generalized shaking , slurring of speech, right sided weakness and numbness. She had ct scan of brain done and it was unremarkable and it is improving, She is feeling better after giving iv keppra 1 gm extra dose. She is suppose to be on keppra 1 gm po bid Past Medical As above SH,ROS , FH reviewed in chart her grandfather and uncle had cerebral aneurysm Neurologic Surgery: Yes (brain clip 05/2017 crainotomy 08/05/2017) - Allergies Allergy/AdvReac Type Severity Reaction Status Date / Time Penicillins Allergy Rash Verified 08/15/17 13:59 Home Medications: Ambulatory Orders Levothyroxine [Synthroid -] 75 mcg PO DAILY 12/10/13 Ascorbic Acid [Vitamin C] 500 mg PO DAILY 08/15/17 Ferrous Sulfate 325 mg PO DAILY 08/15/17 Gabapentin [Neurontin -] 300 mg PO Q8H 08/15/17 Levetiracetam 1,000 mg PO BID 08/15/17 Simvastatin 20 mg PO DAILY 08/15/17 Neurological Examination Alert oriented x 3, speech is normal, able to follow command, neck is supple Face symmetrical, Pupils is reactive eomi moving all extremity strenght is normal sensation is normal, reflex are generalized normal CT head is showing improving subdural and signs of craniotomy Assessment- Transient symptoms of shaking, difficulty speaking and numbness, most likley focal epileptic seizure. and ct scan is improving. Now back to normal after giving one gram of iv keppra Plan- I concur with ED attending, to keep for 24 hour for observation and increase keppra 1500 mg po bid - can do eeg if she stays longer,otherwise outpatient - Neurosurgery input appreciated Thanking you so much Justin Whitman MD
--- NOTE | 2017-08-15 17:58 | HP ---
CHIEF COMPLAINT: AMS/seizure PCP: HISTORY OF PRESENT ILLNESS: Patient is a 52 year old female with a significant past medical history of hypercholestermia, hyothyrodism (on synthroid), bilateral mastectomies (BRCA 1 pos), hysterectomy 14 yrs ago (for fibroids), elective clipping of left sided cerebral aneurysm at [facility] on 05/20/2017, traumatic SDH hematoma (s/p crainiotomy 07/31/2017), left SDH with mass effect on 08/07/2017). Today she was brought into the ER by her family for generalized shaking, slurring of her speech, right sided weakness and numbness and lethargy. Patient and family reported sudden onset of right sided numbness prior to ED arrival. Patient was most recently in [place] ED last week and was diagnosed with SDH and sent to [facility] and had a crainotomy with evacuation of the hematoma. Her franca remain intact. No drainage noted on surgical site. On admission, patient reports numbness to her right sided extremities, right sided face, and tongue. Patient also reports a severe headache all day and is on Tylenol at home. In the ED she was given a loading dose of IV Keppra and a CT scan of the head was done (as noted below) and she was seen by Neurology and Neurosurgery. On exam patient is laying in her bed, surrounded by her family. She appears to be back at her baseline, mildly lethargic. ER course was notable for: (1) head CT: s/p left frontoparietal crainotomy with interval decreased size of the left subdural hematoma. Residual mixed density left subdural hematoma along the left frontoparital convexities measures up to 9mm in thickness with mild mass effect as described above. No midline shift, herniation pattern or hydrocephalus. No compelling evidence of acute transcortical infarcation at this time. (2) chest xray: bilateral breast implants, clear lungs (3) hmg/hct 8.0/24.9 Recent Travel: PAST MEDICAL HISTORY: PAST SURGICAL HISTORY: Social History: Smoking: denies Alcohol: denies Drugs: denies Family History: Allergies Penicillins Allergy (Verified 08/15/17 13:59) Rash VOMITING HOME MEDICATIONS: Home Medications Medication Instructions Recorded Levothyroxine [Synthroid -] 75 mcg PO DAILY 12/10/13 Ascorbic Acid [Vitamin C] 500 mg PO DAILY 08/15/17 Ferrous Sulfate 325 mg PO DAILY 08/15/17 Gabapentin [Neurontin -] 300 mg PO Q8H 08/15/17 Levetiracetam 1,000 mg PO BID 08/15/17 Simvastatin 20 mg PO DAILY 08/15/17 REVIEW OF SYSTEMS CONSTITUTIONAL: Absent: fever, chills, diaphoresis, generalized weakness, malaise, loss of appetite, weight change HEENT: Absent: rhinorrhea, nasal congestion, throat pain, throat swelling, difficulty swallowing, mouth swelling, ear pain, eye pain, visual changes CARDIOVASCULAR: Absent: chest pain, syncope, palpitations, irregular heart rate, lightheadedness , peripheral edema RESPIRATORY: Absent: cough, shortness of breath, dyspnea with exertion, orthopnea, wheezing, stridor, hemoptysis GASTROINTESTINAL: Absent: abdominal pain, abdominal distension, nausea, vomiting, diarrhea, constipation, melena, hematochezia GENITOURINARY: Absent: dysuria, frequency, urgency, hesitancy, hematuria, flank pain, genital pain MUSCULOSKELETAL: Absent: myalgia, arthralgia, joint swelling, back pain, neck pain SKIN: Absent: rash, itching, pallor HEMATOLOGIC/IMMUNOLOGIC: Absent: easy bleeding, easy bruising, lymphadenopathy, frequent infections ENDOCRINE: Absent: unexplained weight gain, unexplained weight loss, heat intolerance, cold intolerance NEUROLOGIC: Absent: headache, focal weakness or paresthesias, dizziness, unsteady gait, seizure, mental status changes, bladder or bowel incontinence PSYCHIATRIC: Absent: anxiety, depression, suicidal or homicidal ideation, hallucinations. PHYSICAL EXAMINATION Vital Signs - 24 hr 08/15/17 08/15/17 08/15/17 13:50 14:00 14:30 Temperature 97 F L 98.4 F Pulse Rate 84 Pulse Rate [ 92 H Apical] Respiratory 12 20 Rate Blood Pressure 122/97 Blood Pressure 125/91 [Right Arm] O2 Sat by Pulse 100 100 100 Oximetry (%) 08/15/17 15:06 Temperature Pulse Rate Pulse Rate [ 85 Apical] Respiratory 20 Rate Blood Pressure Blood Pressure 107/75 [Right Arm] O2 Sat by Pulse 100 Oximetry (%) GENERAL: The patient is awake, alert, and fully oriented, Nontoxic - in no acute distress. HEAD: + Franca in head s/p craniotomy, franca intact, no drainage EYES: extraocular movements intact, sclera anicteric, conjunctiva clear. ENT: Normal voice, moist mucous membranes. NECK: Normal range of motion, supple without lymphadenopathy, JVD, or masses. LUNGS: Breath sounds equal, clear to auscultation bilaterally. No wheezes, no crackles, no rales. HEART: Regular rate and rhythm, normal S1 and S2 without murmur, rub or gallop. ABDOMEN: Soft, nontender, normoactive bowel sounds. No guarding, no rebound. No masses. EXTREMITIES: Normal range of motion, no edema. No clubbing or cyanosis. No cords , erythema, or tenderness. NEUROLOGICAL: + Fully Oriented x 3, Alert. Lower extremities, full movement, mild numbness of right side, weakness of right lower leg. SKIN: Warm, Dry, normal turgor, no rashes or lesions noted. Laboratory Results - last 24 hr 08/15/17 08/15/17 08/15/17 13:49 13:55 13:55 WBC 6.1 D RBC 3.10 L Hgb 8.0 L Hct 24.9 L MCV 80.3 MCH 25.9 MCHC 32.2 RDW 15.5 Plt Count 420 D MPV 7.8 Neutrophils % 42.1 L Lymphocytes % 46.7 H D Monocytes % 8.3 Eosinophils % 2.3 Basophils % 0.6 PT with INR INR Sodium Cancelled Potassium Cancelled Chloride Cancelled Carbon Dioxide Cancelled Anion Gap Cancelled BUN Cancelled Creatinine Cancelled Creat Clearance w eGFR Cancelled POC Glucometer [id number] Random Glucose Cancelled Calcium Cancelled Total Bilirubin Cancelled AST Cancelled ALT Cancelled Alkaline Phosphatase Cancelled Creatine Kinase Troponin I Total Protein Cancelled Albumin Cancelled Triglycerides Cholesterol Total LDL Cholesterol HDL Cholesterol Blood Type Antibody Screen 08/15/17 08/15/17 08/15/17 13:56 14:00 14:00 WBC RBC Hgb Hct MCV MCH MCHC RDW Plt Count MPV Neutrophils % Lymphocytes % Monocytes % Eosinophils % Basophils % PT with INR 11.90 H INR 1.05 Sodium 139 Potassium 5.1 Chloride 107 Carbon Dioxide 24 Anion Gap 8 BUN 15 Creatinine 0.5 L Creat Clearance w eGFR > 60 POC Glucometer Random Glucose 82 Calcium 8.5 Total Bilirubin 0.3 AST 32 ALT 29 Alkaline Phosphatase 88 Creatine Kinase 79 Troponin I < 0.02 Total Protein 7.2 Albumin 4.0 Triglycerides 148 Cholesterol 165 Total LDL Cholesterol 92 HDL Cholesterol 60 Blood Type O POSITIVE Antibody Screen Negative ASSESSMENT/PLAN: Patient is a 52 year old female with a significant past medical history of hypercholestermia, hyothyrodism (on synthroid), bilateral mastectomies (BRCA 1 pos), hysterectomy 14 yrs ago (for fibroids), elective clipping of left sided cerebral aneurysm at [facility] on 05/20/2017, traumatic SDH hematoma (s/p crainiotomy 07/31/2017, left SDH with mass effect on 08/07/2017). Today she was brought into the ER by her family for generalized shaking, slurring of her speech, right sided weakness and numbness and lethargy. Patient and family reported sudden onset of right sided numbness prior to ED arrival. Patient was most recently in [place] ED last week and was diagnosed with SDH and sent to [facility] and had a crainotomy with evacuation of the hematoma. Her franca remain intact. No drainage noted on surgical site. On admission, patient reports numbness to her right sided extremities, right sided face, and tongue. Patient also reports a severe headache all day. In the ED she was given a loading dose of IV Keppra and a CT scan of the head was done (as noted below) and she was seen by Neurology and Neurosurgery. On exam patient is laying in her bed, surrounded by her family. She appears to be back at her baseline, mildly lethargic. Imaging: Head CT: s/p left frontoparietal craniotomy with interval decreased size of the left subdural hematoma. Residual mixed density left subdural hematoma along the left frontoparital convexities measures up to 9mm in thickness with mild mass effect as described above. No midline shift, herniation pattern or hydrocephalus. No compelling evidence of acute transcortical infarction at this time. Neurology: Seizure: Likely breakthrough seizure Seen by Dr Whitman, neuro and Neurosurgery Dr. Tucker Keppra 1 gram IV given in ED loading dose Increase Keppra to 1500mg BIDb (on home dose of Keppra 1000mg BID) Ativan 1mg iv for any breakthrough seizure overnight Monitor neuro status Speech and swallow consult On statin at home, lipid panel in a.m. Monitor on tele EEG if patient stays longer inpatient Neurosurgery following AMS in the setting of breakthrough seizure Mental status back to baseline Alert and oriented x 3 Neuro checks Hematology: Anemia, acute No signs of bleeding Repeat CBC on Ferrous sulfate Monitor Transfuse if <7 or symptomatic Hypothyroidism On Synthroid F.E.N. Fluids: monitor on PO Electrolytes: monitor with a.m. labs Nutrition: dysphagia diet, for now, advance Prophylaxis: DVT: SCDs, GI: deferred Disposition: full code
[2017-08-15] MEDS ORDERED: LORazepam 2 MG/ML SDV VIAL IVPUSH PRN (18:14)
[2017-08-15] MEDS ORDERED: ONDANSETRON 4 MG/2 ML VIAL IVPUSH PRN (18:35)
[2017-08-15 18:37] LABS: URINE APPEARANCE CLEAR; URINE BILIRUBIN NEGATIVE (NEGATIVE); URINE BLOOD NEGATIVE (NEGATIVE); URINE COLOR COLORLESS; URINE GLUCOSE (UA) NEGATIVE (NEGATIVE); URINE KETONE NEGATIVE (NEGATIVE); URINE NITRITE NEGATIVE (NEGATIVE); URINE PROTEIN NEGATIVE (NEGATIVE); URINE UROBILINOGEN NEGATIVE mg/dL (0.2-1.0)
[2017-08-15 18:39] LABS: URINE LEUK ESTERASE 1+ (NEGATIVE)
[2017-08-15 18:56] LABS: EPI CELLS RARE /HPF (FEW); URINE BACTERIA RARE /hpf (NONE SEEN)
[2017-08-15 19:21] LABS: BASO % 0.9 % (0-2.0); EOS % 1.9 % (0-4.5); HEMATOCRIT 23.6 % (32.4-45.2); HEMOGLOBIN 7.4 GM/dL (10.7-15.3); LYMPH % 41.4 % (8-40); MCH 25.7 pg (25.7-33.7); MCHC 31.6 g/dl (32.0-36.0); MEAN CELL VOLUME 81.5 fl (80-96); MEAN PLT VOLUME 8.2 fl (7.5-11.1); NEUT % 49.8 % (42.8-82.8); PLATELET COUNT 295 K/MM3 (134-434); RBC 2.89 M/mm3 (3.60-5.2); WHITE BLOOD COUNT 3.9 K/mm3 (4.0-10.0)
[2017-08-15] MEDS: ATORVASTATIN CA 10 MG TABLET (FP) PO SCH (21:59)
[2017-08-15] MEDS: GABAPENTIN 300 MG CAPSULE (FP) PO SCH (21:59)
[2017-08-15] MEDS: levETIRAcetam 500 MG TABLET (FP) PO SCH (21:59)
[2017-08-15] MEDS: ACETAMINOPHEN 325 MG TABLET (FP) PO SCH (22:01)
[2017-08-15 23:43] VITALS: BMI 24.6
--- NOTE | 2017-08-15 23:48 | CONSULT ---
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 Patient with acute Left Fronto-parietal SDH last month which was evacuated in [place]. Patient presented to the [facility] ER on the evening of August 06, 2017 with hemiparesis and was found to have a large reaccumulation of the Left SDH with mixed densities including acute, subacute, and chronic appearing components with membranes. The patient was transferred to [facility] where reoperative evacuation was performed. The patient was discharged home on August 12 and was doing well. This AM, the patient had slurred speech and weakness and was brought in for evaluation. CT Head shows that the SDH has been evacuated, although some intracranial air and a small persisting collection are noted which do not appear to be causing any mass effect. Patient improved after administration of extra Kepra. I discussed the clinical course and current condition with patient and family in great detail. All questions were answered. At this point, there is no collection which appears to require evacuation. No acute Neurosurgical intervention is indicated/planned. Patient likely had a seizure/epileptic event and additional anticonvulsant therapy would appear to be the best current treatment. Dr. Whitman's note is appreciated and I concur that EEG may be useful. I gave the patient and family contact information and a list of warning signs which may prompt further imaging and possible consideration for Neurosurgical re-evaluation.
[2017-08-16 06:22] LABS: BASO % 0.8 % (0-2.0); EOS % 2.7 % (0-4.5); HEMATOCRIT 20.2 % (32.4-45.2); MCH 26.3 pg (25.7-33.7); MCHC 32.7 g/dl (32.0-36.0); MEAN CELL VOLUME 80.4 fl (80-96); MEAN PLT VOLUME 8.7 fl (7.5-11.1); MONO % 9.5 % (3.8-10.2); PLATELET COUNT 329 K/MM3 (134-434); RBC 2.51 M/mm3 (3.60-5.2); RDW 16.1 % (11.6-15.6); WHITE BLOOD COUNT 3.3 K/mm3 (4.0-10.0)
[2017-08-16 06:34] LABS: HEMOGLOBIN 6.6 GM/dL (10.7-15.3)
[2017-08-16] MEDS: GABAPENTIN 300 MG CAPSULE (FP) PO SCH ×3 (06:43→21:49)
[2017-08-16] MEDS: LEVOTHYROXINE NA 75 MCG TABLET (FP) PO SCH (06:43)
[2017-08-16] MEDS: ACETAMINOPHEN 325 MG TABLET (FP) PO SCH ×4 (06:43→23:10)
[2017-08-16 06:50] LABS: ANION GAP 7 (8-16); BILIRUBIN,TOTAL 0.2 mg/dL (0.2-1.0); BLOOD UREA NITROGEN 13 mg/dL (7-18); CALCIUM 8.3 mg/dL (8.5-10.1); CHLORIDE 112 mmol/L (98-107); CHOLESTEROL 137 mg/dL (50-200); CO2 26 mmol/L (21-32); CREATININE 0.5 mg/dL (0.55-1.02); GLUCOSE,RANDOM 97 mg/dL (74-106); PHOSPHOROUS 4.9 mg/dL (2.5-4.9); POTASSIUM 4.2 mmol/L (3.5-5.1); SGOT/AST 13 U/L (15-37); SGPT/ALT 22 U/L (12-78); SODIUM 145 mmol/L (136-145); TOT PROT 5.4 g/dl (6.4-8.2); TRIGLYCERIDES 101 mg/dL (35-160)
[2017-08-16 06:51] LABS: ALK PHOS 62 U/L (45-117)
[2017-08-16 07:39] LABS: HDL CHOLESTEROL 48 mg/dL (40-60); LDL CHOLESTEROL (ONLY SJRH) 70 mg/dL (5-100)
--- NOTE | 2017-08-16 08:43 | EKG ---
Test Reason : Blood Pressure : / mmHG Vent. Rate : 090 BPM Atrial Rate : 090 BPM P-R Int : 136 ms QRS Dur : 084 ms QT Int : 366 ms P-R-T Axes : 047 023 059 degrees QTc Int : 447 ms NORMAL SINUS RHYTHM NORMAL ECG WHEN COMPARED WITH ECG OF 07-AUG-2017 15:07, NO SIGNIFICANT CHANGE WAS FOUND Confirmed by DANIELITO CROOKS MD ([id number]) on 08/16/2017 8:43:22 AM Referred By: Confirmed By:DANIELITO CROOKS MD
--- NOTE | 2017-08-16 10:52 | PN ---
Physical Exam: SUBJECTIVE: Patient seen and examined at the bedside. States she feels weak today. OBJECTIVE: No reported seizure activity overnight hmg.hct dropped overnight, 2 units of prbc ordered, repeat CBC. iron studies Vital Signs Period Temp Pulse Resp BP Sys/Adams Pulse Ox Last 24 Hr 97 F-98.8 F 70-92 12-20 99-125/46-97 100-100 GENERAL: The patient is awake, alert, and fully oriented, Nontoxic - in no acute distress. HEAD: + Franca in head s/p craniotomy, franca intact, no drainage EYES: extraocular movements intact, sclera anicteric, conjunctiva clear. ENT: Normal voice, moist mucous membranes. NECK: Normal range of motion, supple without lymphadenopathy, JVD, or masses. LUNGS: Breath sounds equal, clear to auscultation bilaterally. No wheezes, no crackles, no rales. HEART: Regular rate and rhythm, normal S1 and S2 without murmur, rub or gallop. ABDOMEN: Soft, nontender, normoactive bowel sounds. No guarding, no rebound. No masses. EXTREMITIES: Normal range of motion, no edema. No clubbing or cyanosis. No cords , erythema, or tenderness. NEUROLOGICAL: + Fully Oriented x 3, Alert. Lower extremities, full movement, mild numbness of right side, weakness of right lower leg. SKIN: Warm, Dry, normal turgor, no rashes or lesions noted. Laboratory Results - last 24 hr 08/15/17 08/15/17 08/15/17 13:49 13:55 13:55 WBC 6.1 D RBC 3.10 L Hgb 8.0 L Hct 24.9 L MCV 80.3 MCH 25.9 MCHC 32.2 RDW 15.5 Plt Count 420 D MPV 7.8 Neutrophils % 42.1 L Lymphocytes % 46.7 H D Monocytes % 8.3 Eosinophils % 2.3 Basophils % 0.6 PT with INR INR Sodium Cancelled Potassium Cancelled Chloride Cancelled Carbon Dioxide Cancelled Anion Gap Cancelled BUN Cancelled Creatinine Cancelled Creat Clearance w eGFR Cancelled POC Glucometer [id number] Random Glucose Cancelled Calcium Cancelled Phosphorus Total Bilirubin Cancelled AST Cancelled ALT Cancelled Alkaline Phosphatase Cancelled Creatine Kinase Troponin I Total Protein Cancelled Albumin Cancelled Triglycerides Cholesterol Total LDL Cholesterol HDL Cholesterol Urine Color Urine Appearance Urine pH Ur Specific [place] Urine Protein Urine Glucose (UA) Urine Ketones Urine Blood Urine Nitrite Urine Bilirubin Urine Urobilinogen Ur Leukocyte Esterase Urine WBC (Auto) Urine RBC (Auto) Ur Epithelial Cells Urine Bacteria Blood Type Antibody Screen Crossmatch 08/15/17 08/15/17 08/15/17 13:56 14:00 14:00 WBC RBC Hgb Hct MCV MCH MCHC RDW Plt Count MPV Neutrophils % Lymphocytes % Monocytes % Eosinophils % Basophils % PT with INR 11.90 H INR 1.05 Sodium 139 Potassium 5.1 Chloride 107 Carbon Dioxide 24 Anion Gap 8 BUN 15 Creatinine 0.5 L Creat Clearance w eGFR > 60 POC Glucometer Random Glucose 82 Calcium 8.5 Phosphorus Total Bilirubin 0.3 AST 32 ALT 29 Alkaline Phosphatase 88 Creatine Kinase 79 Troponin I < 0.02 Total Protein 7.2 Albumin 4.0 Triglycerides 148 Cholesterol 165 Total LDL Cholesterol 92 HDL Cholesterol 60 Urine Color Urine Appearance Urine pH Ur Specific [place] Urine Protein Urine Glucose (UA) Urine Ketones Urine Blood Urine Nitrite Urine Bilirubin Urine Urobilinogen Ur Leukocyte Esterase Urine WBC (Auto) Urine RBC (Auto) Ur Epithelial Cells Urine Bacteria Blood Type O POSITIVE Antibody Screen Negative Crossmatch 08/15/17 08/15/17 08/15/17 18:25 19:10 19:10 WBC 3.9 L D RBC 2.89 L Hgb 7.4 L Hct 23.6 L MCV 81.5 MCH 25.7 MCHC 31.6 L RDW 16.0 H Plt Count 295 D MPV 8.2 Neutrophils % 49.8 Lymphocytes % 41.4 H Monocytes % 6.0 Eosinophils % 1.9 Basophils % 0.9 PT with INR INR Sodium Potassium Chloride Carbon Dioxide Anion Gap BUN Creatinine Creat Clearance w eGFR POC Glucometer Random Glucose Calcium Phosphorus Total Bilirubin AST ALT Alkaline Phosphatase Creatine Kinase Troponin I Total Protein Albumin Triglycerides Cholesterol Total LDL Cholesterol HDL Cholesterol Urine Color Colorless Urine Appearance Clear Urine pH 7.0 Ur Specific [place] 1.004 Urine Protein Negative Urine Glucose (UA) Negative Urine Ketones Negative Urine Blood Negative Urine Nitrite Negative Urine Bilirubin Negative Urine Urobilinogen Negative Ur Leukocyte Esterase 1+ H Urine WBC (Auto) 2 Urine RBC (Auto) 1 Ur Epithelial Cells Rare Urine Bacteria Rare Blood Type O POSITIVE Antibody Screen Negative Crossmatch See Detail 08/16/17 08/16/17 08/16/17 05:00 05:00 05:00 WBC 3.3 L RBC 2.51 L Hgb 6.6 L* D Hct 20.2 L MCV 80.4 MCH 26.3 MCHC 32.7 RDW 16.1 H Plt Count 329 MPV 8.7 Neutrophils % 42.0 L Lymphocytes % 45.0 H Monocytes % 9.5 Eosinophils % 2.7 Basophils % 0.8 PT with INR INR Sodium 145 Potassium 4.2 Chloride 112 H Carbon Dioxide 26 Anion Gap 7 L BUN 13 Creatinine 0.5 L Creat Clearance w eGFR > 60 POC Glucometer Random Glucose 97 Calcium 8.3 L Phosphorus 4.9 Total Bilirubin 0.2 D AST 13 L ALT 22 Alkaline Phosphatase 62 Creatine Kinase Troponin I Total Protein 5.4 L Albumin 3.0 L Triglycerides 101 Cancelled Cholesterol 137 Cancelled Total LDL Cholesterol 70 Cancelled HDL Cholesterol 48 Cancelled Urine Color Urine Appearance Urine pH Ur Specific [place] Urine Protein Urine Glucose (UA) Urine Ketones Urine Blood Urine Nitrite Urine Bilirubin Urine Urobilinogen Ur Leukocyte Esterase Urine WBC (Auto) Urine RBC (Auto) Ur Epithelial Cells Urine Bacteria Blood Type Antibody Screen Crossmatch Active Medications Generic Name Dose Route Start Last Admin Trade Name Freq PRN Reason Stop Dose Admin Acetaminophen 650 mg 08/15/17 22:00 08/16/17 06:43 Tylenol - PO 650 mg Q6HPO ADWOA Administration Ascorbic Acid 500 mg 08/16/17 10:00 Vitamin C - PO DAILY ADWOA Atorvastatin Calcium 10 mg 08/15/17 22:00 08/15/17 21:59 Lipitor - PO 10 mg HS ADWOA Administration Ferrous Sulfate 325 mg 08/16/17 10:00 Feosol - PO DAILY ADWOA Gabapentin 300 mg 08/15/17 22:00 08/16/17 06:43 Neurontin - PO 300 mg TID ADWOA Administration Sodium Chloride 1,000 mls @ 42 mls/hr 08/15/17 14:00 08/15/17 14:24 Normal Saline - IV 42 mls/hr ASDIR ADWOA Administration Levetiracetam 1,500 mg 08/15/17 22:00 08/15/17 21:59 Keppra - PO 1,500 mg BID ADWOA Administration Levothyroxine Sodium 75 mcg 08/16/17 07:00 08/16/17 06:43 Synthroid - PO 75 mcg DAILY@0700 ADWOA Administration Lorazepam 1 mg 08/15/17 18:14 Ativan Injection - IVPUSH Q4H PRN breakthrough seizures Ondansetron HCl 4 mg 08/15/17 18:35 Zofran Injection IVPUSH Q4H PRN NAUSEA AND/OR VOMITING ASSESSMENT/PLAN: Patient is a 52 year old female with a significant past medical history of hypercholestermia, hyothyrodism (on synthroid), bilateral mastectomies (BRCA 1 pos), hysterectomy 14 yrs ago (for fibroids), elective clipping of left sided cerebral aneurysm at [facility] on 05/20/2017, traumatic SDH hematoma (s/p crainiotomy 07/31/2017), left SDH with mass effect on 08/07/2017). Today she was brought into the ER by her family for generalized shaking, slurring of her speech, right sided weakness and numbness and lethargy. Patient and family reported sudden onset of right sided numbness prior to ED arrival. Patient was most recently in [place] ED last week and was diagnosed with SDH and sent to [facility] and had a crainotomy with evacuation of the hematoma. Her franca remain intact. No drainage noted on surgical site. On admission, patient reports numbness to her right sided extremities, right sided face, and tongue. Patient also reports a severe headache all day and is on Tylenol at home. In the ED she was given a loading dose of IV Keppra and a CT scan of the head was done (as noted below) and she was seen by Neurology and Neurosurgery. Imaging: Head CT: s/p left frontoparietal craniotomy with interval decreased size of the left subdural hematoma. Residual mixed density left subdural hematoma along the left frontoparital convexities measures up to 9mm in thickness with mild mass effect as described above. No midline shift, herniation pattern or hydrocephalus. No compelling evidence of acute transcortical infarction at this time. Neurology: Seizure: Likely breakthrough seizure on admission, none overnight Keppra 1 gram IV given in ED loading dose Keppra increased to 1500mg BIDb(on home dose of Keppra 1000mg BID) Ativan 1mg iv for any breakthrough seizures Monitor neuro status Speech and swallow consult On statin at home, lipid panel in a.m. Monitor on tele EEG if patient stays longer inpatient Neurosurgery following AMS in the setting of breakthrough seizure, resolved Mental status back to baseline Alert and oriented x 3 Neuro checks Hematology: Anemia, acute hmg/hct dropped again on Ferrous sulfate 2 units of prbc now Hypothyroidism On Synthroid F.E.N. Fluids: monitor on PO Electrolytes: monitor with a.m. labs Nutrition: dysphagia diet, for now, advance Prophylaxis: DVT: SCDs, GI: deferred Disposition: full code
[2017-08-16] MEDS: ASCORBIC ACID 500 MG TABLET (FP) PO SCH (10:57)
[2017-08-16] MEDS: FERROUS SO4 325 MG TABLET (FP) PO SCH (10:57)
[2017-08-16] MEDS: levETIRAcetam 500 MG TABLET (FP) PO SCH ×2 (10:57→21:49)
--- NOTE | 2017-08-16 17:30 | PN ---
Progress Note (short form) - Note Progress Note: Patient is at her Neurological baseline. Her Hemoglobin was noted to drop 2 points overnight and transfusion was ordered. It is possible that her anemia lowered her seizure threshold. I am unaware whether she was given steroids associated with her recent subdural hematomata and this may predispose her to GI bleeding. She describes melanotic stool which she attributes to iron intake. Repeat Head CT is unramarkable for acute intracranial pathology. PLAN -Transfusion -Anemia workup -Anticonvulsant Threrapy -Will follow Intracranial condition
--- NOTE | 2017-08-16 17:43 | PN ---
Progress Note (short form) - Note Progress Note: 52 year old female history of hypercholestermia, hyothyrodism on synthroid and had cerebral aneursmal surgery at [facility]. Following surgery she had SDH twice and recently was operated at [facility] . Today she had mild generalized shaking, slurring of speech, right sided weakness and numbness. She had ct scan of brain done and it was unremarkable and it is improving, She is feeling better after giving iv keppra 1 gm extra dose. her keppra was increased to 1500 mg po bid , and she has dropped hemoglobin and was ordered to give PRBC. Neurological Examination Alert oriented x 3, speech is normal, able to follow command, neck is supple Face symmetrical, Pupils is reactive eomi moving all extremity Strength is normal sensation is normal, reflex are generalized normal CT head is showing improving subdural and signs of craniotomy repeat ct scan is normal Assessment- Transient symptoms of shaking, difficulty speaking and numbness, most likley focal epileptic seizure. and ct scan is improving. on keppra 1500 mg po bid , she is back to normal stage Plan- eeg , do not need to hold in hospital and can be done outpatient - repeat ct scan was unremarkable - Neurosurgery input appreciated Thanking you so much Justin Whitman MD
[2017-08-16 18:31] LABS: HEMOGLOBIN 9.6 GM/dL (10.7-15.3); MCH 26.9 pg (25.7-33.7); MEAN CELL VOLUME 81.5 fl (80-96); MEAN PLT VOLUME 8.3 fl (7.5-11.1); PLATELET COUNT 386 K/MM3 (134-434); RBC 3.56 M/mm3 (3.60-5.2); RDW 15.6 % (11.6-15.6); WHITE BLOOD COUNT 5.3 K/mm3 (4.0-10.0)
[2017-08-16 18:42] LABS: INR 1.09 (0.82-1.09); PROTHROMBIN TIME (PATIENT) 12.3 SEC (9.98-11.88)
[2017-08-16] MEDS: ATORVASTATIN CA 10 MG TABLET (FP) PO SCH (21:49)
[2017-08-17 06:11] LABS: SERUM IRON SATURATION 19 % (15-55); TOTAL IRON BINDING CAPACITY 353 ug/dL (250-450); UIBC 287 ug/dL (131-425)
[2017-08-17] MEDS: GABAPENTIN 300 MG CAPSULE (FP) PO SCH (06:17)
[2017-08-17] MEDS: ACETAMINOPHEN 325 MG TABLET (FP) PO SCH ×2 (06:17→11:34)
[2017-08-17] MEDS: LEVOTHYROXINE NA 75 MCG TABLET (FP) PO SCH (06:17)
[2017-08-17 07:02] LABS: BASO % 0.8 % (0-2.0); EOS % 2.7 % (0-4.5); HEMATOCRIT 28.5 % (32.4-45.2); HEMOGLOBIN 9.3 GM/dL (10.7-15.3); LYMPH % 34.6 % (8-40); MCH 26.3 pg (25.7-33.7); MCHC 32.5 g/dl (32.0-36.0); MEAN CELL VOLUME 80.9 fl (80-96); MEAN PLT VOLUME 7.8 fl (7.5-11.1); MONO % 8.5 % (3.8-10.2); NEUT % 53.4 % (42.8-82.8); PLATELET COUNT 370 K/MM3 (134-434); RBC 3.53 M/mm3 (3.60-5.2); RDW 15.5 % (11.6-15.6); WHITE BLOOD COUNT 4.8 K/mm3 (4.0-10.0)
[2017-08-17 07:28] LABS: ALBUMIN 3.3 g/dl (3.4-5.0); ANION GAP 7 (8-16); BLOOD UREA NITROGEN 10 mg/dL (7-18); CALCIUM 8.2 mg/dL (8.5-10.1); CHLORIDE 109 mmol/L (98-107); CO2 27 mmol/L (21-32); GLUCOSE,RANDOM 91 mg/dL (74-106); MAGNESIUM 1.9 mg/dL (1.8-2.4); POTASSIUM 4.4 mmol/L (3.5-5.1); SODIUM 143 mmol/L (136-145)
[2017-08-17 07:36] LABS: ALK PHOS 65 U/L (45-117); BILIRUBIN,TOTAL 0.3 mg/dL (0.2-1.0); CREATININE 0.5 mg/dL (0.55-1.02); SGOT/AST 13 U/L (15-37); SGPT/ALT 22 U/L (12-78); TOT PROT 5.8 g/dl (6.4-8.2)
--- NOTE | 2017-08-17 08:58 | DS ---
Physical Exam: SUBJECTIVE: Patient seen and examined OBJECTIVE: Vital Signs Period Temp Pulse Resp BP Sys/Adams Pulse Ox Last 24 Hr 97.3 F-99.0 F 60-84 16-18 101-114/52-73 98-100 PHYSICAL EXAM GENERAL: The patient is awake, alert, and fully oriented, in no acute distress. HEAD: Normal with no signs of trauma. EYES: PERRL, extraocular movements intact, sclera anicteric, conjunctiva clear. ENT: Ears normal, nares patent, oropharynx clear without exudates, moist mucous membranes. NECK: Trachea midline, full range of motion, supple. LUNGS: Breath sounds equal, clear to auscultation bilaterally, no wheezes, no crackles, no accessory muscle use. HEART: Regular rate and rhythm, S1, S2 without murmur, rub or gallop. ABDOMEN: Soft, nontender, nondistended, normoactive bowel sounds, no guarding, no rebound, no hepatosplenomegaly, no masses. EXTREMITIES: 2+ pulses, warm, well-perfused, no edema. NEUROLOGICAL: Cranial nerves II through XII grossly intact. Normal speech, gait not observed. PSYCH: Normal mood, normal affect. SKIN: Warm, dry, normal turgor, no rashes or lesions noted. LABS Laboratory Results - last 24 hr 08/15/17 08/16/17 08/16/17 19:10 10:00 17:30 WBC 5.3 D RBC 3.56 L D Hgb 9.6 L D Hct 29.0 L D MCV 81.5 MCH 26.9 MCHC 33.0 RDW 15.6 Plt Count 386 MPV 8.3 Neutrophils % Lymphocytes % Monocytes % Eosinophils % Basophils % PT with INR INR Sodium Potassium Chloride Carbon Dioxide Anion Gap BUN Creatinine Creat Clearance w eGFR Random Glucose Calcium Magnesium Iron 66 TIBC 353 Iron Saturation 19 Ferritin Total Bilirubin AST ALT Alkaline Phosphatase Total Protein Albumin Blood Type O POSITIVE Antibody Screen Negative Crossmatch See Detail 08/16/17 08/17/17 08/17/17 18:00 06:40 06:40 WBC 4.8 RBC 3.53 L Hgb 9.3 L Hct 28.5 L MCV 80.9 MCH 26.3 MCHC 32.5 RDW 15.5 Plt Count 370 MPV 7.8 Neutrophils % 53.4 D Lymphocytes % 34.6 D Monocytes % 8.5 Eosinophils % 2.7 Basophils % 0.8 PT with INR 12.30 H INR 1.09 Sodium 143 Potassium 4.4 Chloride 109 H Carbon Dioxide 27 Anion Gap 7 L BUN 10 Creatinine 0.5 L Creat Clearance w eGFR > 60 Random Glucose 91 Calcium 8.2 L Magnesium 1.9 Iron TIBC Iron Saturation Ferritin 23.130 Total Bilirubin 0.3 D AST 13 L ALT 22 Alkaline Phosphatase 65 Total Protein 5.8 L Albumin 3.3 L Blood Type Antibody Screen Crossmatch HOSPITAL COURSE: Date of Admission:08/15/17 Date of Discharge: 08/17/17 Discharge Summary Reason For Visit: SEIZURE Current Active Problems Seizure as late effect of cerebrovascular accident (CVA) (Acute) Condition: Stable - Instructions Diet, Activity, Other Instructions: Mrs. Handy: You were admitted to [facility] for a seizure. Please note that since that time your Keppra has been increased to Keppra 1500mg twice per day. Please see your primary care physician Dr. Mancia within 3-5 days after discharge for post hospital follow up. Please take the Cat scan imaging reports with you. A referral for a test bore helper has been also provided. It is important that your maintain you blood counts stable. Continue taking the iron supplements. Please call me with any questions that you may have. Sindi Howard, [facility] [phone] Referrals: Tucker Colón MD [Primary Care Provider] - Justin Whitman MD [Staff Physician] - Mynor Cobian MD [Staff Physician] - Disposition: HOME - Home Medications Comprehensive Discharge Medication List: Ambulatory Orders Levothyroxine [Synthroid -] 75 mcg PO DAILY 12/10/13 Ascorbic Acid [Vitamin C] 500 mg PO DAILY 08/15/17 Ferrous Sulfate 325 mg PO DAILY 08/15/17 Gabapentin [Neurontin -] 300 mg PO Q8H 08/15/17 Simvastatin 20 mg PO DAILY 08/15/17 Acetaminophen [Tylenol .Regular Strength -] 650 mg PO Q6HPO tablet 08/17/17 levETIRAcetam [Keppra -] 1,500 mg PO BID #120 tablet 08/17/17
[2017-08-17] MEDS: FERROUS SO4 325 MG TABLET (FP) PO SCH (09:15)
[2017-08-17] MEDS: levETIRAcetam 500 MG TABLET (FP) PO SCH (09:16)
[2017-08-17] MEDS: ASCORBIC ACID 500 MG TABLET (FP) PO SCH (09:16)
--- NOTE | 2017-08-17 10:43 | CONSULT ---
Admitting History and Physical - Primary Care Physician PCP: Jorge Junior - Admission History of Present Illness: Per EMR: Patient is a 52 year old female with a significant past medical history of hypercholestermia, hyothyrodism (on synthroid), bilateral mastectomies (BRCA 1 pos), hysterectomy 14 yrs ago (for fibroids), elective clipping of left sided cerebral aneurysm at [facility] on 05/20/2017, traumatic SDH hematoma (s/p crainiotomy 07/31/2017, left SDH with mass effect on 08/07/2017). Today she was brought into the ER by her family for generalized shaking, slurring of her speech, right sided weakness and numbness and lethargy. Per neurology imp:Transient symptoms of shaking, difficulty speaking and numbness, most likley focal epileptic seizure. and ct scan is improving 08/16/17 08/16/17 08/16/17 01:12 06:00 10:00 Breakfast Lunch Supper Temperature 98.8 F 98 F 98.4 F 08/16/17 08/16/17 08/16/17 11:31 14:00 18:00 Breakfast 100% Lunch 100% Supper Temperature 98.9 F 98.8 F 08/16/17 08/16/17 08/17/17 19:53 22:00 02:00 Breakfast Lunch Supper 100% Temperature 99.0 F 97.3 F L 08/17/17 06:00 Breakfast Lunch Supper Temperature 97.9 F History Source: Patient, Family Member, Medical Record Limitations to Obtaining History: No Limitations - Past Medical History Gastrointestinal: Yes: GERD Endocrine: Yes: Hyperthyroidism - Past Surgical History Past Surgical History: Yes: Mastectomy - Smoking History Smoking history: Never smoked Have you smoked in the past 12 months: No Aproximately how many cigarettes per day: 0 - Alcohol/Substance Use Hx Alcohol Use: No History of Substance Use: reports: None - Social History History of Recent Travel: No History - Admission Reason For Visit: SEIZURE - Diagnostics CT Scan: Report Reviewed (s/p left frontoparietal crainotomy with interval decreased size of the left subdural hematoma. Residual mixed density left subdural hematoma along the left frontoparital convexities measures up to 9mm in thickness with mild mass effect as described above. No midline shift, herniation pattern or hydrocephalus. No compelling evidence of acute transcortical infarcation at this time.) - General Mental Status: Alert and Oriented, Awake and Alert, Able to Follow Commands Attention: Intact Ability to Follow Directions: Excellent Head/Neck Control: WFL - Hearing Hearing: Normal Speech Evaluation - Communication Primary Language: GREEK Communication: Yes: Within Normal Limits Oral Expression Ability: Yes: No Impairment - Speech Production Able to Make Needs Known: Yes: WNL Intelligibility: Yes: WNL - Speech Characteristics Voice Loudness: Normal Voice Pitch: Yes: Normal Voice Phonatory-based Quality: Yes: Normal Speech Pattern: Normal Nasal Resonance: Normal Articulation: Yes: Precise Rate of Speech: Intact - Language/Auditory Comprehension Follows: Yes: 2 Stage Simple Commands - Language/Verbal Expression Able to Respond to Simple Queries: Yes: WNL Able to Communicate Wants and Needs: Yes: WNL Functional Communication Status: Yes: WNL - Memory/Perception detention Memory: Yes: WNL Short Term Memory: Yes: WNL - Swallow Evaluation/Bedside Assessment Current Nutritional Intake: Dysphagia Whole, Thin Liquids Oral Secretions: Yes: WFL Dentition: Yes: Adequate Facial Symmetry at Rest: Symmetrical Facial Symmetry on Retraction: Symmetrical Facial Movement: Controlled Sensation: Normal Against Resistance Opening: Normal Against Resistance Closing: Normal Pucker Lips: Normal Smile: Normal Lingual Movement: Normal, Symmetric Lingual Speed of Movement: Normal Lingual Movement Strgth Against Opposition: Normal Lingual Movement Characteristics: Normal Velopharyngeal Movement: Normal Laryngeal Elevation: WFL Laryngeal Movement: Able to Palpate Rate of Intake: WFL Labial Seal: WFL Chewing: WFL Oral Prep Time: WFL A-P Transit: WFL Pocketing: None Timing of Swallow: WFL Coughing/Throat Clear: No Change in Voice: No Recommendations - Speech Evaluation, Impression/Plan Impression: Speech, swallow,language,and cognition intact - Disposition Discharge to: Home Alone - Dysphagia Impressions/Plan Swallowing Skills: WFL Dysphagia Impressions: No Impairment *Silent aspiration: cannot be R/O at bedside - Recommendations Diet Consistency: Regular Medication Administration: Whole with water Liquids: Thin Liquids
[2017-08-17 10:50] VITALS: BP 117/77; PULSE 80; TEMP 99
--- NOTE | 2017-08-17 12:07 | PN ---
Progress Note (short form) - Note Progress Note: Patient doing well and in good spirits. Incision is clean, dry and intact. No contraindications to discharge. Patient and family have contact information and understand warning signs which would warrant return
== END 2017-08-17 12:08 | disposition home or self-care (01) ==
LOC: JER 13:41 → JERBED 17:56 → J4W 20:53
PROVIDERS: ADMIT Internal Medicine; ATTEND Nurse Practitioner Family
PROC: 3E033GC Introduction of Other Therapeutic Substance into Peripheral Vein, Percutaneous Approach (ICD-10-PCS; principal; 2017-08-15)
PROC: 3E0337Z Introduction of Electrolytic and Water Balance Substance into Peripheral Vein, Percutaneous Approach (ICD-10-PCS; 2017-08-15)
DX: I69.398 Other sequelae of cerebral infarction (principal); R56.9 Unspecified convulsions; D64.9 Anemia, unspecified; E03.9 Hypothyroidism, unspecified; E78.5 Hyperlipidemia, unspecified; Z90.13 Acquired absence of bilateral breasts and nipples; Z90.710 Acquired absence of both cervix and uterus; Z86.79 Personal history of other diseases of the circulatory system; Z98.890 Other specified postprocedural states
CPT/HCPCS: 36415; 36430; 36511; 70450-TC; 71045-TC; 80053; 80061; 81003; 81015; 82465; 82550; 82728; 82962; 83540; 83550; 83718; 83721; 83735; 84100; 84478; 84484; 85025; 85027; 85610; 86850; 86900; 86901; 86922; 87040; 87086; 93005; 93010; 96374; 96375; 99285-25; G0378; P9038; P9058

== ENCOUNTER 2018-06-08 17:40 | Emergency (ER) | payer OTHER, BC ==
[2018-06-08 17:48] VITALS: TEMP 99.3; BMI 25.8
--- NOTE | 2018-06-08 17:50 | PDOC ---
Rapid Medical Evaluation Chief Complaint: Pain, Acute Time Seen by Provider: 06/08/18 17:44 Medical Evaluation: Allergies Allergy/AdvReac Type Severity Reaction Status Date / Time Penicillins Allergy Rash Verified 06/08/18 17:45 06/08/18 17:45 I have performed a brief in-person evaluation of this patient. The patient presents with a chief complaint of:RUQ/ aching and burnig to right flank pain, on and off past week , worse after eating , no fevers/ + nausea Pertinent physical exam findings: pale. abd soft, mild CVAT I have ordered the following: UA/ Ucx The patient will proceed to the ED for further evaluation. 06/08/18 17:49 06/08/18 17:50
[2018-06-08 18:06] LABS: HCG,QUALITATIVE URINE Negative
[2018-06-08 18:15] LABS: URINE APPEARANCE CLEAR; URINE BILIRUBIN NEGATIVE (<2.0 mg/dL); URINE COLOR YELLOW; URINE GLUCOSE (UA) NEGATIVE (NEGATIVE); URINE KETONE NEGATIVE (NEGATIVE); URINE LEUK ESTERASE NEGATIVE (NEGATIVE); URINE NITRITE NEGATIVE (NEGATIVE); URINE PROTEIN NEGATIVE (NEGATIVE); URINE UROBILINOGEN NEGATIVE mg/dL (0.2-1.0)
[2018-06-08] MEDS ORDERED: ACETAMINOPHEN 1000 MG/100 ML VIAL (NON FORMULARY) IVPB ONE (18:19)
[2018-06-08] MEDS ORDERED: FAMOTIDINE 20 MG/50 ML IVPB 20 MG/50 ML MG IVPB ONE ×2 (18:19→19:11)
[2018-06-08] MEDS ORDERED: ONDANSETRON 4 MG/2 ML VIAL IVPUSH ONE (18:19)
[2018-06-08] MEDS ORDERED: SODIUM CHLORIDE 1,000 ML IV STA (18:19)
--- NOTE | 2018-06-08 18:19 | PDOC ---
History of Present Illness - General Chief Complaint: Pain, Acute Stated Complaint: ABD PAIN RIGHT SIDE PAIN Time Seen by Provider: 06/08/18 17:44 History Source: Patient - History of Present Illness Timing/Duration: reports: getting worse Pain Radiation: reports: RUQ, RLQ, flank Past History - Past Medical History Allergies/Adverse Reactions: Allergies Allergy/AdvReac Type Severity Reaction Status Date / Time Penicillins Allergy Rash Verified 06/08/18 17:45 Home Medications: Ambulatory Orders Levothyroxine [Synthroid -] 75 mcg PO DAILY 12/10/13 Ascorbic Acid [Vitamin C] 500 mg PO DAILY 08/15/17 Ferrous Sulfate 325 mg PO DAILY 08/15/17 Gabapentin [Neurontin -] 300 mg PO Q8H 08/15/17 Simvastatin 20 mg PO DAILY 08/15/17 Acetaminophen [Tylenol .Regular Strength -] 650 mg PO Q6HPO tablet 08/17/17 levETIRAcetam [Keppra -] 1,500 mg PO BID #120 tablet 08/17/17 Anemia: No Asthma: No Cancer: Yes Cardiac Disorders: No CVA: No COPD: No DVT: No Dementia: No Diabetes: No Dialysis: No GI Disorders: No Disorders: No HTN: Yes Hypercholesterolemia: Yes Kidney Stones: No Liver Disease: No Psychiatric Problems: No Seizures: No Thyroid Disease: Yes (HYPO) Lung CA: No - Surgical History Neurologic Surgery: Yes (brain clip 05/2017 crainotomy 08/05/2017) - Family Disease History Family Disease History: CA: Sister - Immunization History Immunization Up to Date: Yes - Suicide/Smoking/Psychosocial Hx Smoking Status: No Smoking History: Never smoked Have you smoked in the past 12 months: No Number of Cigarettes Smoked Daily: 0 Information on smoking cessation initiated: No Hx Alcohol Use: No Drug/Substance Use Hx: No Substance Use Type: None Review of Systems - Review of Systems Constitutional: No: Chills, Fever Respiratory: No: Shortness of Breath Cardiac (ROS): No: Chest Pain ABD/GI: Yes: Nausea, Abdominal cramping. No: Constipated, Diarrhea, Rectal Bleeding, Vomiting : Yes: Frequency, Flank Pain. No: Burning, Dysuria, Discharge, Hematuria *Physical Exam - Vital Signs Last Vital Signs Temp Pulse Resp BP Pulse Ox 99.3 F 103 H 18 95/72 100 06/08/18 17:45 12/04/18 17:45 06/08/18 17:45 06/08/18 17:45 06/08/18 17:45 - Physical Exam General Appearance: Yes: Appropriately Dressed, Moderate Distress HEENT: positive: Normal Voice Neck: positive: Supple Respiratory/Chest: positive: Lungs Clear, Normal Breath Sounds. negative: Respiratory Distress Cardiovascular: positive: Regular Rate, S1, S2 Gastrointestinal/Abdominal: positive: Normal Bowel Sounds, Tender (sig ttp to RUQ w/ +murpheys, +ttp to RLQ w/ some guarding, neg CVAT), Soft. negative: Pulsatile Mass, Distended, Guarding Musculoskeletal: negative: CVA Tenderness Extremity: positive: Normal Inspection Integumentary: positive: Dry, Warm Neurologic: positive: Fully Oriented, Alert, Normal Mood/Affect Moderate Sedation - Procedure Monitoring Vital Signs: Procedure Monitoring Vital Signs Temperature 99.3 F 06/08/18 17:45 Pulse Rate 103 H 06/08/18 17:45 Respiratory Rate 18 06/08/18 17:45 Blood Pressure 95/72 06/08/18 17:45 O2 Sat by Pulse Oximetry (%) 100 06/08/18 17:45 ED Treatment Course - ADDITIONAL ORDERS Additional order review: Laboratory Results 06/08/18 17:51 Urine HCG, Qual Negative Medical Decision Making - Medical Decision Making 06/08/18 18:12 53-year-old female, hyperthyroidism on synthroid, s/p b/l mastectomy (2/2 + BRCA -1 gene), s/p 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 Patient states for the past week she has had RUQ that she only noticed after eating even if she eats a very small amount. Patient has gradually gotten worse and today now radiates to right mid and right lower quadrant. Also complaining of daily nausea but no vomiting. Reports urinary frequency today. No hematuria, fever or chills. Denies change in bowel movements, BRBPR or melena. Denies vag discharge. odor or itching. Sexually active w/ long time partner. No h/o STDs. No history of gallstones or kidney stones. No history of similar pain. Denies any significant alcohol intake. States she saw her PMD yesterday who ordered a CAT scan which is due tomorrow but pain worsened today, so decided to come into ED for evaluation See exam R sided abd pain R/o acute nimesh vs appy vs perf viscous vs pancreatitis vs uti/pyelo vs renal stone, dissection considered Hypotensive and mildly tachy w/ significant RUQ/RLQ pain -pain control -labs -CTH -anticipate admission 06/08/18 18:56 Pt signed out to SABINE Perez at this point *DC/Admit/Observation/Transfer - Referrals Referrals: Amanda Mancia [Primary Care Provider] - - Patient Instructions - Post Discharge Activity
[2018-06-08] MEDS ORDERED: ACETAMINOPHEN INJECTION 100 ML IVPB ONE (19:10)
[2018-06-08] MEDS ORDERED: ONDANSETRON 4 MG/2 ML VIAL ONE (19:12)
[2018-06-08 19:15] LABS: BASO % 1.1 % (0-2.0); EOS % 1.4 % (0-4.5); HEMATOCRIT 35.8 % (32.4-45.2); HEMOGLOBIN 12.5 GM/dL (10.7-15.3); LYMPH % 44.8 % (8-40); MCH 31.9 pg (25.7-33.7); MCHC 35.1 g/dl (32.0-36.0); MEAN PLT VOLUME 9.8 fl (7.5-11.1); MONO % 8.4 % (3.8-10.2); NEUT % 44.3 % (42.8-82.8); PLATELET COUNT 209 K/MM3 (134-434); RBC 3.93 M/mm3 (3.60-5.2); RDW 13.3 % (11.6-15.6); WHITE BLOOD COUNT 4.5 K/mm3 (4.0-10.0)
[2018-06-08 19:46] LABS: ALBUMIN 4.2 g/dl (3.4-5.0); ALK PHOS 97 U/L (45-117); ANION GAP 9 MMOL/L (8-16); BILIRUBIN,TOTAL 0.3 mg/dL (0.2-1); BLOOD UREA NITROGEN 20 mg/dL (7-18); CALCIUM 8.8 mg/dL (8.5-10.1); CHLORIDE 106 mmol/L (98-107); CO2 26 mmol/L (21-32); CREATININE 0.7 mg/dL (0.55-1.3); GLUCOSE,RANDOM 83 mg/dL (74-106); LIPASE 135 U/L (73-393); POTASSIUM 4.6 mmol/L (3.5-5.1); SGOT/AST 28 U/L (15-37); SGPT/ALT 53 U/L (13-61); SODIUM 141 mmol/L (136-145)
[2018-06-08 22:02] VITALS: BP 121/90; PULSE 70
--- NOTE | 2018-06-08 22:07 | PDOC ---
*Physical Exam - Vital Signs Last Vital Signs Temp Pulse Resp BP Pulse Ox 99.3 F 70 18 121/90 98 06/08/18 17:45 06/08/18 22:02 06/08/18 22:02 06/08/18 22:02 06/08/18 22:02 ED Treatment Course - LABORATORY CBC & Chemistry Diagram: 06/08/18 18:52 06/08/18 18:52 - ADDITIONAL ORDERS Additional order review: Laboratory Results 06/08/18 06/08/18 18:52 17:51 Sodium 141 Potassium 4.6 Chloride 106 Carbon Dioxide 26 Anion Gap 9 BUN 20 H Creatinine 0.7 Creat Clearance w eGFR > 60 Random Glucose 83 Calcium 8.8 Total Bilirubin 0.3 AST 28 ALT 53 Alkaline Phosphatase 97 Total Protein 7.0 Albumin 4.2 Lipase 135 Urine Color Yellow Urine Appearance Clear Urine pH 5.0 D Ur Specific [place] 1.026 Urine Protein Negative Urine Glucose (UA) Negative Urine Ketones Negative Urine Blood Negative Urine Nitrite Negative Urine Bilirubin Negative Urine Urobilinogen Negative Ur Leukocyte Esterase Negative Urine HCG, Qual Negative 06/08/18 18:52 RBC 3.93 MCV 91.0 MCHC 35.1 RDW 13.3 D MPV 9.8 D Neutrophils % 44.3 Lymphocytes % 44.8 H D Monocytes % 8.4 Eosinophils % 1.4 Basophils % 1.1 - Medications Given in the ED: ED Medications Discontinued Medications Generic Name Dose Route Start Last Admin Trade Name Freq PRN Reason Stop Dose Admin Acetaminophen 1,000 mg 06/08/18 18:19 06/08/18 19:20 Ofirmev Injection - IVPB 06/08/18 18:20 1,000 mg ONCE ONE Administration Famotidine/Sodium Chloride 20 mg in 50 mls @ 100 mls/hr 06/08/18 18:19 19:40 Pepcid 20 Mg Premixed Ivpb - IVPB 06/08/18 18:48 100 mls/hr ONCE ONE Administration Sodium Chloride 1,000 mls @ 1,000 mls/hr 06/08/18 18:19 06/08/18 19:20 Normal Saline - IV 06/08/18 19:18 1,000 mls/hr ASDIR STA Administration Ondansetron HCl 4 mg 06/08/18 18:19 06/08/18 19:20 Zofran Injection IVPUSH 06/08/18 18:20 4 mg ONCE ONE Administration Medical Decision Making - Medical Decision Making Patient signed out to me by SABINE Ervin Patient resting comfortably, mentions noting improvement in pain Labs and UA were negative CT A/P negative for any acute findings; some moderate colonic retention noted Advised increased fiber intake, use of stool softeners as needed Stable for d/c 06/08/18 22:03 *DC/Admit/Observation/Transfer Diagnosis at time of Disposition: Right sided abdominal pain - Discharge Dispostion Disposition: HOME Condition at time of disposition: Improved Decision to Admit order: No - Referrals Referrals: Amanda Mancia [Primary Care Provider] - 3 days - Patient Instructions Printed Discharge Instructions: DI for Abdominal Pain-Adult Additional Instructions: Thank you for choosing [facility]. It was a pleasure taking care of you. You were seen here for abdominal pain Your labs and CT imaging were unremarkable. You were only noted to have some moderate stool Recommend increased fiber intake if feeling constipated; use Miralax if needed. Return to the Emergency Department if your symptoms worsen or persist, you have fever, shortness of breath, chest pain, severe abdominal pain, vomiting, pass black or bloody stools or other concerning symptoms. - Post Discharge Activity
--- NOTE | 2018-06-09 12:36 | EKG ---
Test Reason : Blood Pressure : / mmHG Vent. Rate : 072 BPM Atrial Rate : 072 BPM P-R Int : 176 ms QRS Dur : 094 ms QT Int : 418 ms P-R-T Axes : 056 010 036 degrees QTc Int : 457 ms NORMAL SINUS RHYTHM NORMAL ECG WHEN COMPARED WITH ECG OF 15-AUG-2017 13:44, NO SIGNIFICANT CHANGE WAS FOUND Confirmed by DAINELITO CROOKS MD ([id number]) on 06/09/2018 12:36:14 PM Referred By: Confirmed By:DANIELITO CROOKS MD
== END 2018-06-08 23:11 | disposition home or self-care (01) ==
LOC: JER 17:40
PROC: 3E033GC Introduction of Other Therapeutic Substance into Peripheral Vein, Percutaneous Approach (ICD-10-PCS; principal; 2018-06-08)
PROC: 3E033GC Introduction of Other Therapeutic Substance into Peripheral Vein, Percutaneous Approach (ICD-10-PCS; 2018-06-08)
PROC: 3E033NZ Introduction of Analgesics, Hypnotics, Sedatives into Peripheral Vein, Percutaneous Approach (ICD-10-PCS; 2018-06-08)
DX: R10.9 Unspecified abdominal pain (principal); I10 Essential (primary) hypertension; E03.9 Hypothyroidism, unspecified; E78.00 Pure hypercholesterolemia, unspecified; Z87.820 Personal history of traumatic brain injury; Z85.3 Personal history of malignant neoplasm of breast; Z90.13 Acquired absence of bilateral breasts and nipples
CPT/HCPCS: 36415; 71045-TC-FY; 74177-TC; 80053; 81003; 83690; 84703; 85025; 87086; 93005; 93010; 96365; 96375; 99283-25; J0131; J7030

== ENCOUNTER 2018-10-08 20:46 | Emergency (ER) | payer OTHER, BC ==
--- NOTE | 2018-10-08 20:56 | PDOC ---
Rapid Medical Evaluation Chief Complaint: Headache Medical Evaluation: Allergies Allergy/AdvReac Type Severity Reaction Status Date / Time Penicillins Allergy Rash Verified 06/08/18 17:45 10/08/18 20:53 I have performed a brief in-person evaluation of this patient. The patient presents with a chief complaint of: Headache x 2 hours/ Hx of anerysnm repair x 3 08/08/2017 last surgery at [facility]- states pain the same. Pertinent physical exam findings: pale/ holding head/ + neck heavy/ left sided pain . I have ordered the following: taken to back for eval and treatment The patient will proceed to the ED for further evaluation. Discharge Disposition - Diagnosis Headache - Referrals - Patient Instructions - Post Discharge Activity
[2018-10-08 20:59] VITALS: TEMP 98.6; BMI 25.7
[2018-10-08] MEDS ORDERED: METOCLOPRAMIDE HCL INJECTION 10 MG/2 ML VIAL IVPUSH ONE (21:16)
[2018-10-08] MEDS ORDERED: SODIUM CHLORIDE 1,000 ML IV STA (21:16)
[2018-10-08] MEDS ORDERED: morphine CARPU-JECT 4 MG/1 ML DISP.SYRIN IVPUSH ONE (21:17)
[2018-10-08] MEDS ORDERED: morphine SULFATE 4 MG/ML VIAL ONE (21:25)
[2018-10-08] MEDS ORDERED: METOCLOPRAMIDE HCL INJECTION 10 MG/2 ML VIAL ONE (21:25)
--- NOTE | 2018-10-08 21:46 | PDOC ---
Attending Attestation - Resident Resident Name: Georgi Gonzalez - ED Attending Attestation I have performed the following: I have examined & evaluated the patient, The case was reviewed & discussed with the resident, I agree w/resident's findings & plan, Exceptions are as noted - HPI HPI: 10/08/18 21:56 53 yo F with h/o HLD and seizure disorder from prior brain anuerysm, last had surgery in 2017 . here with sudden onset headache frontal. startd at 7 p tonight . was at rest feels same as prior brain bleeds. no siezure like activity. states her original anuersym was in may 2017 , she had clip at [place]. then had recurrent bleed while traveling in [place] and had second surgery. then 10 days later had recurrent bleed, where she was treated at [facility]. no n/v no weakness. .did have residual weakness after initial in 2016 but has recovered completely. - Physicial Exam PE: 10/08/18 22:01 awake alert lungs clear bilaterally heart rrr n o mrg abd soft nt nd. ext wwp no edema. nuero alert oriented x 3. 5/5 all four ext. speech clear. photophobia. - Medical Decision Making 10/08/18 22:02 53 yo F with h/o prior sah, clipp crani x 2, siezure disorder here with sudden onset headache. [id number]. differential infection, recurrent sah, migrain, anemia, plan labs pain meds. ct. will consult pt nuerosurgeon. ct head unremarkble. pt pain mild improvement with meds. 10/08/18 22:36 case d/w [facility] nuerosurgery, recommed emergency MRI possible intervention. will accept transfer for care of pt. accepted by dr Delarosa, and eD attending dr camara.
[2018-10-08 21:48] LABS: BASO % 1.2 % (0-2.0); EOS % 2.5 % (0-4.5); HEMATOCRIT 37.8 % (32.4-45.2); HEMOGLOBIN 12.7 GM/dL (10.7-15.3); LYMPH % 61.6 % (8-40); MCH 30.2 pg (25.7-33.7); MCHC 33.6 g/dl (32.0-36.0); MEAN PLT VOLUME 9.5 fl (7.5-11.1); MONO % 6.5 % (3.8-10.2); NEUT % 28.2 % (42.8-82.8); PLATELET COUNT 194 K/MM3 (134-434); RDW 13.1 % (11.6-15.6); WHITE BLOOD COUNT 3.4 K/mm3 (4.0-10.0)
--- NOTE | 2018-10-08 21:50 | PDOC ---
History of Present Illness - General Chief Complaint: Headache Stated Complaint: HEADACE/LEFT SIDE Time Seen by Provider: 10/08/18 21:00 - History of Present Illness Initial Comments: 10/08/18 21:35 Ms. Handy is a 53 yo female w/ pmh of HLD and prior aneurysm w/ subsequent clipping, then craniotomy 2/2 bleed who presents for evaluation of L sided headache pain sudden in onset she reports is similar to her previous aneurysm pain. Patient reports pain was sudden in onset and started around 7pm. She took tylenol at home without relief from pain. Denies any other complaints at this time. The patient denies chest pain, shortness of breath, and dizziness. Denies fever , chills, nausea, vomit, diarrhea and constipation. Denies dysuria, frequency, urgency and hematuria. Past History - Past Medical History Allergies/Adverse Reactions: Allergies Allergy/AdvReac Type Severity Reaction Status Date / Time Penicillins Allergy Rash Verified 10/08/18 21:41 Home Medications: Ambulatory Orders Levothyroxine [Synthroid -] 75 mcg PO DAILY 12/10/13 Simvastatin 20 mg PO DAILY 08/15/17 levETIRAcetam [Keppra -] 1,000 mg PO BID 06/08/18 Anemia: No Asthma: No Cancer: Yes Cardiac Disorders: No CVA: No COPD: No DVT: No Dementia: No Diabetes: No Dialysis: No GI Disorders: No Disorders: No HTN: Yes Hypercholesterolemia: Yes Kidney Stones: No Liver Disease: No Psychiatric Problems: No Seizures: No Thyroid Disease: Yes (HYPO) Lung CA: No Other medical history: brain anneurysm - Surgical History Neurologic Surgery: Yes (brain clip 05/2017 crainotomy 08/05/2017) - Family Disease History Family Disease History: CA: Sister - Immunization History Immunization Up to Date: Yes - Suicide/Smoking/Psychosocial Hx Smoking Status: No Smoking History: Never smoked Have you smoked in the past 12 months: No Number of Cigarettes Smoked Daily: 0 Hx Alcohol Use: No Drug/Substance Use Hx: No Substance Use Type: None Review of Systems - Review of Systems Comments:: 10/08/18 21:50 GENERAL/CONSTITUTIONAL: No fever or chills. No weakness. HEAD, EYES, EARS, NOSE AND THROAT: No change in vision. No ear pain or discharge. No sore throat. CARDIOVASCULAR: No chest pain or shortness of breath RESPIRATORY: No cough, wheezing, or hemoptysis. GASTROINTESTINAL: No nausea, vomiting, diarrhea or constipation. GENITOURINARY: No dysuria, frequency, or change in urination. MUSCULOSKELETAL: No joint or muscle swelling or pain. No neck or back pain. SKIN: No rash NEUROLOGIC: Headache as described. No vertigo, loss of consciousness, or change in strength/sensation. ENDOCRINE: No increased thirst. No abnormal weight change HEMATOLOGIC/LYMPHATIC: No anemia, easy bleeding, or history of blood clots. ALLERGIC/IMMUNOLOGIC: No hives or skin allergy. *Physical Exam - Vital Signs Last Vital Signs Temp Pulse Resp BP Pulse Ox 98.6 F 77 20 125/89 100 10/08/18 20:55 10/08/18 20:55 10/08/18 20:55 10/08/18 20:55 10/08/18 20:55 - Physical Exam Comments: 10/08/18 21:50 GENERAL: Awake, alert, and fully oriented, in no acute distress HEAD: No signs of trauma, normocephalic, atraumatic EYES: PERRLA, EOMI, sclera anicteric, conjunctiva clear ENT: Auricles normal inspection, hearing grossly normal, nares patent, oropharynx clear without exudates. Moist mucosa NECK: Normal ROM, supple, no lymphadenopathy, JVD, or masses LUNGS: No distress, speaks full sentences, clear to auscultation bilaterally HEART: Regular rate and rhythm, normal S1 and S2, no murmurs, rubs or gallops, peripheral pulses normal and equal bilaterally. ABDOMEN: Soft, nontender, normoactive bowel sounds. No guarding, no rebound. No masses EXTREMITIES: Normal inspection, Normal range of motion, no edema. No clubbing or cyanosis. NEUROLOGICAL: Cranial nerves II through XII grossly intact. Normal speech, normal gait, no focal sensorimotor deficits SKIN: Warm, Dry, normal turgor, no rashes or lesions noted. ED Treatment Course - LABORATORY CBC & Chemistry Diagram: 10/08/18 21:30 10/08/18 21:30 - RADIOLOGY Radiology Studies Ordered: Category Date Time Status HEAD CT WITHOUT CONTRAST [CT] Stat CT Scan 10/08/18 21:10 Taken CHEST X-RAY PORTABLE* [RAD] Stat Radiology 10/08/18 21:18 Taken Medical Decision Making - Medical Decision Making 10/08/18 22:07 Ms. Handy is a 53 yo female w/ pmh as described who presents for evaluation of symptoms concerning for aneurysm vs. bleed vs. alternate neurological process. Given patient history, evaluation started with CT head immediately ( negative). Patient pre-op labs sent for further evaluation. Patient case discussed with [facility] who suggested MRI for further investigation. Given low ability to get stat MRI at this hospital and no neurological intervention ability if positive findings, transfer discussed. Dr. Delarosa NSGY attending. Dr. Stewart accepting for ER to ER transfer. Discussed with patient who consents to this plan. *DC/Admit/Observation/Transfer Diagnosis at time of Disposition: Headache Qualifiers: Headache type: unspecified Headache chronicity pattern: unspecified pattern Intractability: intractable Qualified Code(s): R51 - Headache - Discharge Dispostion Disposition: TRANSFER ACUTE CARE/OTHER HOSP - Referrals - Patient Instructions - Post Discharge Activity
[2018-10-08 22:16] LABS: ALK PHOS 130 U/L (45-117); ANION GAP 5 MMOL/L (8-16); BILIRUBIN,TOTAL 0.2 mg/dL (0.2-1); BLOOD UREA NITROGEN 16 mg/dL (7-18); CALCIUM 8.5 mg/dL (8.5-10.1); CHLORIDE 110 mmol/L (98-107); CO2 26 mmol/L (21-32); CREATININE 0.5 mg/dL (0.55-1.3); GLUCOSE,RANDOM 100 mg/dL (74-106); POTASSIUM 4.1 mmol/L (3.5-5.1); SGOT/AST 36 U/L (15-37); SGPT/ALT 118 U/L (13-61); SODIUM 141 mmol/L (136-145); TOT PROT 7.2 g/dl (6.4-8.2)
[2018-10-08 23:16] LABS: ANISOCYTOSIS 1+; MACROCYTOSIS 1+; PLATELET ESTIMATE ADEQUATE
[2018-10-08 23:27] VITALS: BP 131/85; PULSE 70
--- NOTE | 2018-10-09 11:36 | EKG ---
Test Reason : Blood Pressure : / mmHG Vent. Rate : 066 BPM Atrial Rate : 066 BPM P-R Int : 178 ms QRS Dur : 088 ms QT Int : 416 ms P-R-T Axes : 061 014 055 degrees QTc Int : 436 ms NORMAL SINUS RHYTHM NONSPECIFIC T WAVE ABNORMALITY ABNORMAL ECG WHEN COMPARED WITH ECG OF 08-JUN-2018 19:40, NO SIGNIFICANT CHANGE WAS FOUND Confirmed by ALLEGRA DESHPANDE MD ([id number]) on 10/09/2018 11:36:08 AM Referred By: Confirmed By:ALLEGRA DESHPANDE MD
== END 2018-10-08 22:30 | disposition short-term general hospital (02) ==
LOC: JER 20:46
PROC: 3E033NZ Introduction of Analgesics, Hypnotics, Sedatives into Peripheral Vein, Percutaneous Approach (ICD-10-PCS; principal; 2018-10-08)
PROC: 3E033GC Introduction of Other Therapeutic Substance into Peripheral Vein, Percutaneous Approach (ICD-10-PCS; 2018-10-08)
DX: R51 Headache (principal); E78.00 Pure hypercholesterolemia, unspecified; G40.909 Epilepsy, unspecified, not intractable, without status epilepticus; Z86.79 Personal history of other diseases of the circulatory system; I10 Essential (primary) hypertension; E03.8 Other specified hypothyroidism
CPT/HCPCS: 36415; 70450-TC; 71045-TC-FY; 80053; 85025; 86850; 86900; 86901; 93005; 93010; 96374; 96375; 99284-25; J7030